=== PATIENT | female | born 1955 | race Caucasian/White ===

== ENCOUNTER 2020-02-13 15:37 | Inpatient (IN) | payer MEDICARE ==
[~2020-02-13] VITALS: Ht 177.8 cm; Wt 68.1 kg
[2020-02-13] MEDS ORDERED: IV NORMAL SALINE 1000ML BAG 1,000 ML IV ONE (15:45)
[2020-02-13] MEDS ORDERED: ASPIRIN 325 MG TABLET PO ONE (15:45)
--- NOTE | 2020-02-13 16:03 | EKG ---
[facility] [address] [place] [address] Test Date: 2020-02-13 Test Time: 15:48:43 Pat Name: MARC GOMEZ Department: Room: Gender: F Surgeon Partner: : 1955 Requested By: DELORIS DANG Order Number: [id number] Reading MD: Vishnu Roque MD Measurements Intervals [place] Rate: 66 P: 70 ID: 156 QRS: 49 QRSD: 88 T: 54 QT: 400 QTc: 421 Interpretive Statements SINUS RHYTHM ATRIAL PREMATURE COMPLEX(ES) ST & T ABNORMALITY, CONSIDER RECENT INFERIOR MYOCARDIAL OR PERICARDIAL DAMAGE ABNORMAL ECG Electronically Signed On 02-14-2020 9:17:32 CDT by Vishnu Roque MD
[2020-02-13 16:06] LABS: BASO % 1 % (0-3); EOS % 1 % (0-3); HEMATOCRIT 40.4 % (36.0-47.0); HEMOGLOBIN 14.1 g/dL (12.0-15.5); LYMPH # 1.9 x10^3/uL (1.0-4.8); LYMPH % 28 % (24-48); MEAN CORPUSCULAR HEMOGLOBIN 30 pg (25-35); MEAN CORPUSCULAR HGB CONC 35 g/dL (31-37); MEAN CORPUSCULAR VOLUME 86 fL (79-100); MONO # 0.5 x10^3/uL (0.0-1.1); MONO % 7 % (0-9); NEUT # 4.1 x10^3/uL (1.8-7.7); NEUT % 63 % (31-73); PLATELET COUNT 276 x10^3/uL (140-400); RED BLOOD COUNT 4.69 x10^6/uL (3.50-5.40); WHITE BLOOD COUNT 6.5 x10^3/uL (4.0-11.0)
[2020-02-13 16:07] LABS: CALCIUM 8.8 mg/dL (8.5-10.1); CREATININE 0.9 mg/dL (0.6-1.0); GFR 62.6; POTASSIUM 3.6 mmol/L (3.5-5.1)
[2020-02-13 16:13] LABS: ALBUMIN 3.8 g/dL (3.4-5.0); TOTAL BILIRUBIN 0.3 mg/dL (0.2-1.0); TOTAL PROTEIN 7.6 g/dL (6.4-8.2)
[2020-02-13 16:18] LABS: PROTHROMBIN TIME PATIENT 12.5 SEC (11.7-14.0)
--- NOTE | 2020-02-13 16:29 | PHYS DOC ---
Past Medical History Past Medical History: GERD, High Cholesterol, Hypertension Past Surgical History: Other Additional Past Surgical Histo: LUNG BIOPSY Smoking Status: Former Smoker Alcohol Use: None Drug Use: None General Adult EDM: Chief Complaint: CHEST PAIN HPI: HPI: Patient is a 64 year old female presents with history of midsternal chest pain with radiation down left arm. Patient reports started last night with interval improvement. Patient reports history of GERD for which she takes Protonix. Patient reports initially thought her symptoms were secondary to her chronic GERD. Patient reports returned today and felt different than her normal GERD. Reports she called her PCP who instructed her to present to the ER for further evaluation. Denies trauma. Denies shortness of air. Denies diaphoresis or nausea. Patient with cardiac risk factors of high blood pressure, former smoking, and high cholesterol. Patient denies leg swelling or calf tenderness. Denies history of PE/DVT. Patient does report family history of PE/DVT in her mother. Review of Systems: Review of Systems: Constitutional: Denies fever or chills Eyes: Denies redness or eye pain HENT: Denies nasal congestion or sore throat Respiratory: Denies cough or shortness of breath Cardiovascular: Reports chest pain; denies palpitations GI: Denies abdominal pain, nausea, or vomiting : Denies dysuria or hematuria Musculoskeletal: Denies back pain or joint pain Integument: Denies rash or skin lesions Neurologic: Denies headache, focal weakness or sensory changes Complete systems were reviewed and found to be within normal limits, except as documented in this note. Heart Score: HEART Score for Chest Pain: HEART Score for Chest Pain Response (Comments) Value History Moderately Suspicious 1 ECG Nonspecific Repolarizatio 1 Age > 65 2 Risk Factors >3 Risk Factors or Hx CAD 2 Troponin >3 x Normal Limit 2 Total 8 Risk Factors: Risk Factors: DM, Current or recent (<one month) smoker, HTN, HLP, family history of CAD, obesity. Risk Scores: Score 0 - 3: 2.5% MACE over next 6 weeks - Discharge Home Score 4 - 6: 20.3% MACE over next 6 weeks - Admit for Clinical Observation Score 7 - 10: 72.7% MACE over next 6 weeks - Early Invasive Strategies Current Medications: Current Medications Medications (Trade) Dose Ordered Sig/[facility] Start Time Stop Time Status Last Admin Dose Admin Aspirin (Karen Aspirin) 325 mg 1X ONCE 02/13/20 15:45 02/13/20 16:06 DC 02/13/20 16:09 325 MG Heparin Sodium (Porcine) (Heparin Sodium) 1,700 unit PRN Q6HRS PRN 02/13/20 16:30 Heparin Sodium/ Dextrose 250 ml @ 8.184 mls/ hr CONT PRN 02/13/20 16:30 Sodium Chloride 1,000 ml @ 1,000 mls/hr 1X ONCE 02/13/20 15:45 02/13/20 16:44 02/13/20 16:09 1,000 MLS/HR Allergies: Allergies: Allergies Coded Allergies Type Severity Reaction Last Updated Verified Sulfa (Sulfonamide Antibiotics) Allergy Intermediate Hives 02/13/20 Yes Physical Exam: PE: Constitutional: Well developed, well nourished, no acute distress, non-toxic appearance HENT: Normocephalic, atraumatic, oropharynx moist Eyes: Conjunctiva normal, no discharge Neck: Normal range of motion, no tenderness, supple Cardiovascular: Heart rate normal, regular rhythm Lungs & Thorax: Bilateral breath sounds clear to auscultation, no wheezing Abdomen: Soft, no tenderness, no guarding/rebound tenderness/distention Skin: Warm, dry, no erythema, no rash Extremities: No tenderness, ROM intact, no edema Neurologic: Alert and oriented X 3, no focal deficits noted Psychologic: Affect normal, judgment normal Current Patient Data: Labs: Laboratory Tests Test 02/13/20 15:50 White Blood Count 6.5 x10^3/uL (4.0-11.0) Red Blood Count 4.69 x10^6/uL (3.50-5.40) Hemoglobin 14.1 g/dL (12.0-15.5) Hematocrit 40.4 % (36.0-47.0) Mean Corpuscular Volume 86 fL (79-100) Mean Corpuscular Hemoglobin 30 pg (25-35) Mean Corpuscular Hemoglobin Concent 35 g/dL (31-37) Red Cell Distribution Width 13.0 % (11.5-14.5) Platelet Count 276 x10^3/uL (140-400) Neutrophils (%) (Auto) 63 % (31-73) Lymphocytes (%) (Auto) 28 % (24-48) Monocytes (%) (Auto) 7 % (0-9) Eosinophils (%) (Auto) 1 % (0-3) Basophils (%) (Auto) 1 % (0-3) Neutrophils # (Auto) 4.1 x10^3/uL (1.8-7.7) Lymphocytes # (Auto) 1.9 x10^3/uL (1.0-4.8) Monocytes # (Auto) 0.5 x10^3/uL (0.0-1.1) Eosinophils # (Auto) 0.0 x10^3/uL (0.0-0.7) Basophils # (Auto) 0.0 x10^3/uL (0.0-0.2) Sodium Level 139 mmol/L (136-145) Potassium Level 3.6 mmol/L (3.5-5.1) Chloride Level 102 mmol/L (98-107) Carbon Dioxide Level 27 mmol/L (21-32) Anion Gap 10 (6-14) Blood Urea Nitrogen 8 mg/dL (7-20) Creatinine 0.9 mg/dL (0.6-1.0) Estimated GFR (Cockcroft-Gault) 62.6 BUN/Creatinine Ratio 9 (6-20) Glucose Level 137 mg/dL (70-99) H Calcium Level 8.8 mg/dL (8.5-10.1) Magnesium Level 2.0 mg/dL (1.8-2.4) Total Bilirubin 0.3 mg/dL (0.2-1.0) Aspartate Amino Transferase (AST) 41 U/L (15-37) H Alanine Aminotransferase (ALT) 23 U/L (14-59) Alkaline Phosphatase 120 U/L (46-116) H Creatine Kinase 325 U/L (26-192) H Creatine Kinase MB (Mass) 18.7 ng/mL (0.0-3.6) H Creatine Kinase MB Relative Index 5.8 % (0-4) H Troponin I Quantitative 1.663 ng/mL (0.000-0.055) TR-Wgc-B-Type Natriuretic Peptide 1221 pg/mL (0-124) H Total Protein 7.6 g/dL (6.4-8.2) Albumin 3.8 g/dL (3.4-5.0) Albumin/Globulin Ratio 1.0 (1.0-1.7) Lipase 177 U/L (73-393) Laboratory Tests 02/13/20 15:50 Laboratory Tests 02/13/20 15:50 Vital Signs: Vital Signs Date Time Temp Pulse Resp B/P (MAP) Pulse Ox O2 Delivery O2 Flow Rate FiO2 02/13/20 15:44 98.6 67 19 164/104 (124) 100 Room Air 98.6 EKG: EKG: @1548 NSR at 66bpm with PACs, slight ST elevation noted in III and even less in aVF, no reciprocal depressions noted, QRS 88ms, QT/QTc 400/421ms Radiology/Procedures: Radiology/Procedures: PROCEDURE: CT ANGIOGRAPHY CHEST CTA scan of the Chest with Contrast (Pulmonary Embolism protocol) 02/13/2020 Clinical History: Chest pain. Elevated d-dimer. Technique: After the intravenous administration of 90 cc of Omnipaque 350, contiguous, 0.625 mm axial sections were obtained through the chest. 2 mm axial and 3D MIP coronal and sagittal reconstructed images were obtained. One or more of the following individualized dose reduction techniques were utilized for this study: 1. Automated exposure control. 2. Adjustment of the mA and/or kV according to patient size. 3. Use of iterative reconstruction technique. Findings: No filling defect is seen within the major branches of either pulmonary artery. There is no CT evidence of pulmonary embolism. The thoracic aorta is mildly tortuous. Atherosclerotic calcification of the thoracic aorta is seen. The thoracic aorta tapers normally. Linear bands of subsegmental atelectasis are seen involving both lower lobes. A 5 mm calcified granuloma is seen involving the left upper lobe. No area of consolidation, pleural effusion or pneumothorax is seen. Impression: There is no CT evidence of pulmonary embolism. Electronically signed by: Phuc Palacios MD (02/13/2020 5:44 PM) [id number] Course & Med Decision Making: Course & Med Decision Making Pertinent Labs and Imaging studies reviewed. (See chart for details) Patient presents with report of chest discomfort with radiation down left arm. Patient reports has started last night but had since improved. Reports return today and felt different. Patient was instructed to present to the ER by her PCP. EKG with very subtle ST elevation in 3 and even more minimally and AVf. No reciprocal changes noted. Labs obtained and posted to chart. Troponin > 1.6. D-dimer elevated. Heparin bolus/gtt initiated. CTA chest without acute process. HEART score [address] Leyva (cardiology) who is in agreement with plan and requests patient to be NPO at [place]. Patient requiring admission for further evaluation and treatment. Discussed with Dr. Henning (hospitalist) who is in agreement with admission. Discussed findings and plan with patient and family, who acknowledge understanding and agreement. Dragon Disclaimer: Dragon Disclaimer: This electronic medical record was generated, in whole or in part, using a voice recognition dictation system. Departure Departure Impression: Primary Impression: NSTEMI (non-ST elevated myocardial infarction) Additional Impression: Elevated d-dimer Disposition: ADMITTED INPATIENT Admitting Physician: EYAL (Juvencio) Condition: GUARDED Referrals: NAILA VITAL MD (PCP) Justicifation of Admission Dx: Justifications for Admission: Justification of Admission Dx: Yes AK: Acute NSTEMI Critical Care Time Critical care time was 30 minutes which includes time at bedside, spent in discussion of patient's care with specialists and/or family members, with interpretation of laboratory and/or radiological studies and is exclusive of procedures. DELORIS DANG DO Feb 13, 2020 16:28
[2020-02-13] MEDS ORDERED: HEPARIN for IV BOLUS 10,000 UNIT/10 ML VIAL. IV ONE (16:30)
[2020-02-13] MEDS ORDERED: HEPARIN 25,000UTS/250ML PREMIX 250 ML IV PRN (16:30)
[2020-02-13] MEDS ORDERED: HEPARIN for IV BOLUS 10,000 UNIT/10 ML VIAL. IV PRN (16:30)
[2020-02-13 16:39] LABS: D-DIMER 0.8 ug/mlFEU (0.00-0.50)
[2020-02-13] MEDS ORDERED: ONDANSETRON PF 4 MG/2 ML VIAL. IV PRN (16:45)
[2020-02-13] MEDS ORDERED: IOHEXOL 350 MG/ML 100 ML VIAL. IV ONE (17:15)
[2020-02-13] MEDS ORDERED: CONTRAST GIVEN. MC PRN (17:15)
[2020-02-13 17:23] LABS: BILIRUBIN,URINE NEGATIVE (NEG); CLARITY,URINE CLEAR; COLOR,URINE YELLOW; NITRITE,URINE NEGATIVE (NEG); PH,URINE 7.5 (<5.0-8.0); PROTEIN,URINE NEGATIVE (NEG-TRACE); UROBILINOGEN,URINE 0.2 mg/dL (0.2 mg/dL)
[2020-02-13 17:30] VITALS: BP 154/77
[2020-02-13 17:38] LABS: BACTERIA,URINE 0 /HPF (0-FEW); RBC,URINE OCC /HPF (0-2); SQUAMOUS EPITHELIAL CELL,UR FEW /LPF; WBC,URINE OCC /HPF (0-4)
[2020-02-13] MEDS ORDERED: AMLO10TA8 PO (17:44)
[2020-02-13] MEDS ORDERED: PANT40TA77 PO (17:44)
--- NOTE | 2020-02-13 17:47 | RAD ---
CTA scan of the Chest with Contrast (Pulmonary Embolism protocol) 02/13/2020 Clinical History: Chest pain. Elevated d-dimer. Technique: After the intravenous administration of 90 cc of Omnipaque 350, contiguous, 0.625 mm axial sections were obtained through the chest. 2 mm axial and 3D MIP coronal and sagittal reconstructed images were obtained. One or more of the following individualized dose reduction techniques were utilized for this study: 1. Automated exposure control. 2. Adjustment of the mA and/or kV according to patient size. 3. Use of iterative reconstruction technique. Findings: No filling defect is seen within the major branches of either pulmonary artery. There is no CT evidence of pulmonary embolism. The thoracic aorta is mildly tortuous. Atherosclerotic calcification of the thoracic aorta is seen. The thoracic aorta tapers normally. Linear bands of subsegmental atelectasis are seen involving both lower lobes. A 5 mm calcified granuloma is seen involving the left upper lobe. No area of consolidation, pleural effusion or pneumothorax is seen. Impression: There is no CT evidence of pulmonary embolism. Electronically signed by: Phuc Palacios MD (02/13/2020 5:44 PM) [id number]
--- NOTE | 2020-02-13 19:00 | NUR ---
Admit prior to shift change for Dx of NSTEMI. C/O mild chest pain. Describes it as aching. Rates it 11/07. Orientated to unit and call light. Reviewed plan of care to include Lab Draws such as Troponin, Heparin drip and, tele monitor and NPO after midnight. Verbalized understanding. Resting in bed watching TV. at bedside. Call light at hand.
[2020-02-13 19:18] VITALS: BP 157/74
[2020-02-13] MEDS: fentaNYL PF VIAL 100 MCG/2 ML VIAL IV PRN (19:43)
[2020-02-13 22:47] VITALS: BP 131/71
--- NOTE | 2020-02-13 23:16 | NUR ---
Troponin elevated from 1.663 to 3[address] Reported to [address] Leyva. Continue with Heparin drip and NPO after midnight. Resting in bed. Call light at hand.
[2020-02-14] VITALS (13 sets, daily range): BP systolic 114–149; BP diastolic 54–79
[2020-02-14] MEDS: fentaNYL PF VIAL 100 MCG/2 ML VIAL IV PRN (02:28)
[2020-02-14 05:39] LABS: CHOLESTEROL/HDL RATIO 2.2
[2020-02-14] MEDS ORDERED: IV NORMAL SALINE 1000ML BAG 1,000 ML IV ONE (08:30)
[2020-02-14] MEDS: METOPROLOL TART IMMED RELEASE 25 MG TABLET. PO SCH ×2 (08:34→22:55)
[2020-02-14] MEDS: ASPIRIN ENTERIC COATED 325 MG TABLET.DR. PO SCH (08:42)
--- NOTE | 2020-02-14 09:31 | PDOC2 ---
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 No associated symptoms of n/v, diaphoresis, palpitations, SOA. No dizziness but her discomfort was c ontinuous with mild to moderate discomfort and nonradiating. Reports No recent falls or injury. No hx of VTE or arrhythmias. She takes norvasc for HTN and no statins but takes daily baby ASA. No hx of DM2. Reports that 5 yrs ago she had a good calcium CT scoring at [facility] and possibly a yr or 2 after that she had stress test and noted abnormality and LHC was done possibly at [facility] but no intervention and denies any significnat lesions at that time but could not recall very well. Currently she still has some tinge of discomfort and again no other associated symptoms. No notable fatigue weakness or any prior discomfort compared to yesterday and she does not do any routine exercise. 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 PAST MEDICAL HISTORY Cardiovascular: HTN, Hyperlipidemia Pulmonary: No pertinent hx CENTRAL NERVOUS SYSTEM: Other (No pertinent history) GI: GERD Heme/Onc: No pertinent hx Hepatobiliary: No pertinent hx Psych: No pertinent hx Musculoskeletal: Osteoarthritis Rheumatologic: No pertinent hx Infectious disease: No pertinent hx ENT: No pertinent hx Renal/: No pertinent hx Endocrine: No pertinent hx Dermatology: No pertinent hx PAST SURGICAL HISTORY Past Surgical History: Other (lung biopsy; C) FAMILY HISTORY Family History: Heart Disease (father) SOCIAL HISTORY Smoke: Quit (20 pk yr quit>20 yrs ago) ALCOHOL: none Drugs: None Lives: with Family CURRENT MEDICATIONS CURRENT MEDICATIONS Current Medications Medications (Trade) Dose Ordered Sig/Connie Route PRN Reason Start Time Stop Time Status Last Admin Dose Admin Aspirin (Karen Aspirin) 325 mg 1X ONCE PO 02/13/20 15:45 02/13/20 16:06 DC 02/13/20 16:09 Sodium Chloride 1,000 ml @ 1,000 mls/hr 1X ONCE IV 02/13/20 15:45 02/13/20 16:44 DC 02/13/20 16:09 Heparin Sodium (Porcine) (Heparin Sodium) 4,000 unit 1X ONCE IV 02/13/20 16:30 02/13/20 16:31 DC 02/13/20 16:40 Heparin Sodium/ Dextrose 250 ml @ 8.184 mls/ hr CONT PRN IV PER PROTOCOL 02/13/20 16:30 02/13/20 16:39 Fentanyl Citrate (Fentanyl 2ml Vial) 25 mcg PRN Q2HRS PRN IV PAIN 02/13/20 16:45 02/14/20 02:28 Iohexol (Omnipaque 350 Mg/ml) 90 ml 1X ONCE IV 02/13/20 17:15 02/13/20 17:16 DC 02/13/20 17:24 Aspirin (Ecotrin) 325 mg [id number] PO 02/14/20 08:00 02/14/20 08:42 Metoprolol Tartrate (Lopressor) 12.5 mg BID PO 02/14/20 09:00 02/14/20 08:34 Sodium Chloride 1,000 ml @ 75 mls/hr 1X ONCE IV 02/14/20 08:30 02/14/20 21:49 02/14/20 08:41 ALLERGIES ALLERGIES: Coded Allergies: Sulfa (Sulfonamide Antibiotics) (Verified Allergy, Intermediate, Hives, 02/13/20) ROS Review of System 4 point ROS evluated with pertinent positives noted per HPI PHYSICAL EXAM General: Alert, Oriented X3, Cooperative, No acute distress HEENT: Atraumatic, Mucous membr. moist/pink Lungs: Clear to auscultation, Normal air movement Heart: Regular rate (SR), Normal S1, Normal S2, No murmurs Abdomen: Soft, No tenderness Extremities: No cyanosis, No edema Skin: No breakdown, No significant lesion Neuro: Normal speech, Sensation intact Psych/Mental Status: Mental status NL, Mood NL MUSCULOSKELETAL: Osteoarthritic changes both hands VITALS/I&O VITALS/I&O: Vital Signs Date Time Temp Pulse Resp B/P (MAP) Pulse Ox O2 Delivery O2 Flow Rate FiO2 02/14/20 08:34 55 139/72 02/14/20 07:00 98.0 18 97 Room Air 98.0 I & O 02/13/20 02/13/20 02/14/20 15:00 23:00 07:00 Intake Total 1007 ml 0 ml Balance 1007 ml 0 ml LABS Lab: Laboratory Tests Test 02/13/20 15:50 02/13/20 17:10 02/13/20 19:42 02/13/20 22:40 White Blood Count 6.5 x10^3/uL (4.0-11.0) Red Blood Count 4.69 x10^6/uL (3.50-5.40) Hemoglobin 14.1 g/dL (12.0-15.5) Hematocrit 40.4 % (36.0-47.0) Mean Corpuscular Volume 86 fL (79-100) Mean Corpuscular Hemoglobin 30 pg (25-35) Mean Corpuscular Hemoglobin Concent 35 g/dL (31-37) Red Cell Distribution Width 13.0 % (11.5-14.5) Platelet Count 276 x10^3/uL (140-400) Neutrophils (%) (Auto) 63 % (31-73) Lymphocytes (%) (Auto) 28 % (24-48) Monocytes (%) (Auto) 7 % (0-9) Eosinophils (%) (Auto) 1 % (0-3) Basophils (%) (Auto) 1 % (0-3) Neutrophils # (Auto) 4.1 x10^3/uL (1.8-7.7) Lymphocytes # (Auto) 1.9 x10^3/uL (1.0-4.8) Monocytes # (Auto) 0.5 x10^3/uL (0.0-1.1) Eosinophils # (Auto) 0.0 x10^3/uL (0.0-0.7) Basophils # (Auto) 0.0 x10^3/uL (0.0-0.2) Prothrombin Time 12.5 SEC (11.7-14.0) Prothrombin Time INR 1.0 (0.8-1.1) Activated Partial Thromboplast Time 29 SEC (24-38) D-Dimer (Bouchra) 0.80 ug/mlFEU (0.00-0.50) H Sodium Level 139 mmol/L (136-145) Potassium Level 3.6 mmol/L (3.5-5.1) Chloride Level 102 mmol/L (98-107) Carbon Dioxide Level 27 mmol/L (21-32) Anion Gap 10 (6-14) Blood Urea Nitrogen 8 mg/dL (7-20) Creatinine 0.9 mg/dL (0.6-1.0) Estimated GFR (Cockcroft-Gault) 62.6 BUN/Creatinine Ratio 9 (6-20) Glucose Level 137 mg/dL (70-99) H Calcium Level 8.8 mg/dL (8.5-10.1) Magnesium Level 2.0 mg/dL (1.8-2.4) Total Bilirubin 0.3 mg/dL (0.2-1.0) Aspartate Amino Transferase (AST) 41 U/L (15-37) H Alanine Aminotransferase (ALT) 23 U/L (14-59) Alkaline Phosphatase 120 U/L (46-116) H Creatine Kinase 325 U/L (26-192) H Creatine Kinase MB (Mass) 18.7 ng/mL (0.0-3.6) H Creatine Kinase MB Relative Index 5.8 % (0-4) H Troponin I Quantitative 1.663 ng/mL (0.000-0.055) 2.604 ng/mL (0.000-0.055) 3.640 ng/mL (0.000-0.055) NT-Zkf-Q-Type Natriuretic Peptide 1221 pg/mL (0-124) H Total Protein 7.6 g/dL (6.4-8.2) Albumin 3.8 g/dL (3.4-5.0) Albumin/Globulin Ratio 1.0 (1.0-1.7) Lipase 177 U/L (73-393) Urine Collection Type Unknown Urine Color Yellow Urine Clarity Clear Urine pH 7.5 (<5.0-8.0) Urine Specific [place] <=1.005 (1.000-1.030) Urine Protein Negative mg/dL (NEG-TRACE) Urine Glucose (UA) Negative mg/dL (NEG) Urine Ketones (Stick) Negative mg/dL (NEG) Urine Blood Negative (NEG) Urine Nitrite Negative (NEG) Urine Bilirubin Negative (NEG) Urine Urobilinogen Dipstick 0.2 mg/dL (0.2 mg/dL) Urine Leukocyte Esterase Negative (NEG) Urine RBC Occ /HPF (0-2) Urine WBC Occ /HPF (0-4) Urine Squamous Epithelial Cells Few /LPF Urine Bacteria 0 /HPF (0-FEW) Heparin Anti-Xa Act, Unfractionated 0.55 IU/mL (0.30-0.70) Test 02/14/20 04:40 02/14/20 04:46 Troponin I Quantitative 6.436 ng/mL (0.000-0.055) Heparin Anti-Xa Act, Unfractionated 0.42 IU/mL (0.30-0.70) Triglycerides Level 34 mg/dL (0-150) Cholesterol Level 254 mg/dL (0-200) H LDL Cholesterol, Calculated 133 mg/dL (0-100) H VLDL Cholesterol, Calculated 7 mg/dL (0-40) Non-HDL Cholesterol Calculated 140 mg/dL (0-129) H HDL Cholesterol 114 mg/dL (40-60) H Cholesterol/HDL Ratio 2.2 Thyroid Stimulating Hormone (TSH) 2.389 uIU/mL (0.358-3.74) Laboratory Tests 02/13/20 15:50 Laboratory Tests 02/13/20 15:50 ASSESSMENT/PLAN ASSESSMENT/PLAN 1. ACS 2. HLP 3. Asymptomatic SB: 50s, no pauses with associated use of metoprolol. with int ermittent brief PSVT 4. HTN: controlled Recommendations 1. LHC today, risks and benefits discussed and agreeable to proceed 2. ASA, heparin drip, start on IVF and statin 3. May need to hold BB pending HR trend. 4. TSH and obtain TTE. Repeat EKG PAVAN KELLY MD 02/14/20 1136: CARDIAC CONSULT ASSESSMENT/PLAN ASSESSMENT/PLAN Patient seen and examined. Agree with MEDICAL ADMINISTRATIVE's assessment and plan. Plan for cardiac catheterization and possible PCI to further evaluate her non- STEMI. Bradycardia could be secondary to RCA involvement. Continue to monitor telemetry. Continue heparin infusion for goal. Thank you for your consultation. TOBIN RANGEL APRN Feb 14, 2020 09:31 PAVAN KELLY MD Feb 14, 2020 11:36
--- NOTE | 2020-02-14 09:33 | EKG ---
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
[2020-02-14] MEDS ORDERED: IODIXANOL 320 MG/ML 100 ML VIAL. ONE (09:52)
[2020-02-14] MEDS ORDERED: LIDOCAINE 1% PF 2 ML VIAL. ONE (09:52)
[2020-02-14] MEDS ORDERED: fentaNYL PF VIAL 100 MCG/2 ML VIAL ONE (09:52)
[2020-02-14] MEDS ORDERED: HEPARIN for IV BOLUS 10,000 UNIT/10 ML VIAL. ONE (09:53)
[2020-02-14] MEDS ORDERED: VERAPAMIL 5 MG/2 ML VIAL. ONE (09:53)
[2020-02-14] MEDS ORDERED: MIDAZOLAM HCL/PF 2 MG/2 ML VIAL. ONE (09:53)
[2020-02-14] MEDS ORDERED: NITROGLYCERIN 200 MCG/2 ML SYRINGE FOR CATH/VASC LAB. ONE (09:55)
--- NOTE | 2020-02-14 10:27 | PDOC1 ---
History and Physical Date of Admission Date of Admission 02/14/2020 Identification/Chief Complaint Chief Complaint My chest hurts Source Source: Chart review, Patient History of Present Illness History of Present Illness 64-year-old female with past medical history of hypertension dyslipidemia who was in her usual state of health until yesterday evening when she presented epigastric pain that radiated retrosternally. The patient denied sensation of impending doom no diaphoresis she did have radiation to her arm over the left side. Patient denies association with exertion. The patient describes the pain as a achy feeling normal pressure no burning sensation 5 out of 10 intensity, of noticed that she has had GERD in the past and it felt quite different reason why she decided to come to the emergency department. The patient denies any shortness of breath no paroxysmal nocturnal dyspnea no orthopnea was reported the patient denies any recent workout programs no trauma to the affected area either. Due to her comorbidities we were asked to admit the patient for cardiac evaluation. She relates having had a cardiac cath several years ago and was told that she had no blockages. Records are not available for review. At the time of my evaluation patient is laying in bed in no acute distress she denies chest pain palpitations no nausea vomiting no urinary symptoms no lower extremity edema was reported either. Plan of care has been explained detail and all of her concerns were addressed to the best of my abilities Past Medical History Cardiovascular: HTN, Hyperlipidemia Pulmonary: No pertinent hx CENTRAL NERVOUS SYSTEM: Other (No pertinent history) GI: GERD Heme/Onc: No pertinent hx Hepatobiliary: No pertinent hx Psych: No pertinent hx Rheumatologic: No pertinent hx Infectious disease: No pertinent hx ENT: No pertinent hx Renal/: No pertinent hx Endocrine: No pertinent hx Dermatology: No pertinent hx Past Surgical History Past Surgical History: Other (lung biopsy; [facility]) Family History Family History: Heart Disease (father) Social History Smoke: Quit (20 pk yr quit>20 yrs ago) ALCOHOL: none Drugs: None Current Problem List Problem List Problems Medical Problems: (1) Elevated d-dimer Status: Acute (2) NSTEMI (non-ST elevated myocardial infarction) Status: Acute Current Medications Current Medications Current Medications Medications (Trade) Dose Ordered Sig/Connie Start Time Stop Time Status Last Admin Dose Admin Aspirin (Akren Aspirin) 325 mg 1X ONCE 02/13/20 15:45 02/13/20 16:06 DC 02/13/20 16:09 325 MG Aspirin (Ecotrin) 325 mg [id number] 02/14/20 08:00 02/14/20 08:42 325 MG Atorvastatin Calcium (Lipitor) 40 mg QHS 02/14/20 21:00 Fentanyl Citrate (Fentanyl 2ml Vial) 100 mcg STK-MED ONCE 02/14/20 09:52 02/14/20 09:53 DC Heparin Sodium (Porcine) (Heparin Sodium) 10,000 unit STK-MED ONCE 02/14/20 09:53 02/14/20 09:53 DC Heparin Sodium/ Dextrose 250 ml @ 8.184 mls/ hr CONT PRN 02/13/20 16:30 02/13/20 16:39 8.184 MLS/HR Heparin Sodium/ Sodium Chloride 500 ml @ As Directed STK-MED ONCE 02/14/20 09:52 02/14/20 09:52 DC Info (CONTRAST GIVEN -- Rx MONITORING) 1 each PRN DAILY PRN 02/13/20 17:15 02/15/20 17:14 Iodixanol (Visipaque 320) 100 ml STK-MED ONCE 02/14/20 09:52 02/14/20 09:52 DC Iohexol (Omnipaque 350 Mg/ml) 90 ml 1X ONCE 02/13/20 17:15 02/13/20 17:16 DC 02/13/20 17:24 90 ML Lidocaine HCl (Xylocaine-Mpf 1% 2ml Vial) 2 ml STK-MED ONCE 02/14/20 09:52 02/14/20 09:52 DC Metoprolol Tartrate (Lopressor) 12.5 mg BID 02/14/20 09:00 02/14/20 08:34 12.5 MG Midazolam HCl (Versed) 2 mg STK-MED ONCE 02/14/20 09:53 02/14/20 09:53 DC Nitroglycerin (Nitroglycerin) 200 mcg STK-MED ONCE 02/14/20 09:55 02/14/20 09:55 DC Ondansetron HCl (Zofran) 4 mg PRN Q8HRS PRN 02/13/20 16:45 02/14/20 16:44 Sodium Chloride 1,000 ml @ 75 mls/hr 1X ONCE 02/14/20 08:30 02/14/20 21:49 02/14/20 08:41 75 MLS/HR Verapamil HCl (Verapamil) 5 mg STK-MED ONCE 02/14/20 09:53 02/14/20 09:53 DC Allergies Allergies Allergies Coded Allergies Type Severity Reaction Last Updated Verified Sulfa (Sulfonamide Antibiotics) Allergy Intermediate Hives 02/13/20 Yes ROS Review of System CONSTITUTIONAL: No fever or chills EYES: No recent changes SKIN: No rash or itching CARDIOVASCULAR: No chest pain, syncope, palpitations, or edema RESPIRATORY: No SOB or cough GASTROINTESTINAL: No nausea, vomiting or abdominal pain NEUROLOGICAL: No headaches or weakness ENDOCRINE: No cold or heat intolerance GENITOURINARY: No urgency or frequency of urination MUSCULOSKELETAL: No back pain or joint pain LYMPHATICS: No enlarged lymph nodes PSYCHIATRIC: No anxiety or depression Physical Exam Physical Exam GEN.: No apparent distress. Alert and oriented. HEENT: Head is normocephalic, atraumatic NECK: Supple. LUNGS: Clear to auscultation. HEART: RRR, S1, S2 present. Peripheral pulses intact ABDOMEN: Soft, nontender. Positive bowel sounds. EXTREMITIES: Without any cyanosis. NEUROLOGIC: Normal speech, normal tone PSYCHIATRIC: Normal affect, normal mood. SKIN: No ulcerations Vitals Vitals Vital Signs Date Time Temp Pulse Resp B/P (MAP) Pulse Ox O2 Delivery O2 Flow Rate FiO2 02/14/20 08:34 55 139/72 02/14/20 08:00 Room Air 02/14/20 07:00 98.0 18 97 98.0 Labs Labs Laboratory Tests Test 02/13/20 15:50 02/13/20 17:10 02/13/20 19:42 02/13/20 22:40 White Blood Count 6.5 x10^3/uL (4.0-11.0) Red Blood Count 4.69 x10^6/uL (3.50-5.40) Hemoglobin 14.1 g/dL (12.0-15.5) Hematocrit 40.4 % (36.0-47.0) Mean Corpuscular Volume 86 fL (79-100) Mean Corpuscular Hemoglobin 30 pg (25-35) Mean Corpuscular Hemoglobin Concent 35 g/dL (31-37) Red Cell Distribution Width 13.0 % (11.5-14.5) Platelet Count 276 x10^3/uL (140-400) Neutrophils (%) (Auto) 63 % (31-73) Lymphocytes (%) (Auto) 28 % (24-48) Monocytes (%) (Auto) 7 % (0-9) Eosinophils (%) (Auto) 1 % (0-3) Basophils (%) (Auto) 1 % (0-3) Neutrophils # (Auto) 4.1 x10^3/uL (1.8-7.7) Lymphocytes # (Auto) 1.9 x10^3/uL (1.0-4.8) Monocytes # (Auto) 0.5 x10^3/uL (0.0-1.1) Eosinophils # (Auto) 0.0 x10^3/uL (0.0-0.7) Basophils # (Auto) 0.0 x10^3/uL (0.0-0.2) Prothrombin Time 12.5 SEC (11.7-14.0) Prothromb Time International Ratio 1.0 (0.8-1.1) Activated Partial Thromboplast Time 29 SEC (24-38) D-Dimer (Bouchra) 0.80 ug/mlFEU (0.00-0.50) Sodium Level 139 mmol/L (136-145) Potassium Level 3.6 mmol/L (3.5-5.1) Chloride Level 102 mmol/L (98-107) Carbon Dioxide Level 27 mmol/L (21-32) Anion Gap 10 (6-14) Blood Urea Nitrogen 8 mg/dL (7-20) Creatinine 0.9 mg/dL (0.6-1.0) Estimated GFR (Cockcroft-Gault) 62.6 BUN/Creatinine Ratio 9 (6-20) Glucose Level 137 mg/dL (70-99) Calcium Level 8.8 mg/dL (8.5-10.1) Magnesium Level 2.0 mg/dL (1.8-2.4) Total Bilirubin 0.3 mg/dL (0.2-1.0) Aspartate Amino Transf (AST/SGOT) 41 U/L (15-37) Alanine Aminotransferase (ALT/SGPT) 23 U/L (14-59) Alkaline Phosphatase 120 U/L (46-116) Creatine Kinase 325 U/L (26-192) Creatine Kinase MB (Mass) 18.7 ng/mL (0.0-3.6) Creatine Kinase MB Relative Index 5.8 % (0-4) Troponin I Quantitative 1.663 ng/mL (0.000-0.055) 2.604 ng/mL (0.000-0.055) 3.640 ng/mL (0.000-0.055) XT-Bdp-X-Type Natriuretic Peptide 1221 pg/mL (0-124) Total Protein 7.6 g/dL (6.4-8.2) Albumin 3.8 g/dL (3.4-5.0) Albumin/Globulin Ratio 1.0 (1.0-1.7) Lipase 177 U/L (73-393) Urine Collection Type Unknown Urine Color Yellow Urine Clarity Clear Urine pH 7.5 (<5.0-8.0) Urine Specific [place] <=1.005 (1.000-1.030) Urine Protein Negative mg/dL (NEG-TRACE) Urine Glucose (UA) Negative mg/dL (NEG) Urine Ketones (Stick) Negative mg/dL (NEG) Urine Blood Negative (NEG) Urine Nitrite Negative (NEG) Urine Bilirubin Negative (NEG) Urine Urobilinogen Dipstick 0.2 mg/dL (0.2 mg/dL) Urine Leukocyte Esterase Negative (NEG) Urine RBC Occ /HPF (0-2) Urine WBC Occ /HPF (0-4) Urine Squamous Epithelial Cells Few /LPF Urine Bacteria 0 /HPF (0-FEW) Heparin Anti-Xa Act, Unfractionated 0.55 IU/mL (0.30-0.70) Test 02/14/20 04:40 02/14/20 04:46 Troponin I Quantitative 6.436 ng/mL (0.000-0.055) Heparin Anti-Xa Act, Unfractionated 0.42 IU/mL (0.30-0.70) Triglycerides Level 34 mg/dL (0-150) Cholesterol Level 254 mg/dL (0-200) LDL Cholesterol, Calculated 133 mg/dL (0-100) VLDL Cholesterol, Calculated 7 mg/dL (0-40) Non-HDL Cholesterol Calculated 140 mg/dL (0-129) HDL Cholesterol 114 mg/dL (40-60) Cholesterol/HDL Ratio 2.2 Thyroid Stimulating Hormone (TSH) 2.389 uIU/mL (0.358-3.74) Laboratory Tests Test 02/13/20 15:50 02/13/20 17:10 02/13/20 19:42 02/13/20 22:40 White Blood Count 6.5 x10^3/uL (4.0-11.0) Red Blood Count 4.69 x10^6/uL (3.50-5.40) Hemoglobin 14.1 g/dL (12.0-15.5) Hematocrit 40.4 % (36.0-47.0) Mean Corpuscular Volume 86 fL (79-100) Mean Corpuscular Hemoglobin 30 pg (25-35) Mean Corpuscular Hemoglobin Concent 35 g/dL (31-37) Red Cell Distribution Width 13.0 % (11.5-14.5) Platelet Count 276 x10^3/uL (140-400) Neutrophils (%) (Auto) 63 % (31-73) Lymphocytes (%) (Auto) 28 % (24-48) Monocytes (%) (Auto) 7 % (0-9) Eosinophils (%) (Auto) 1 % (0-3) Basophils (%) (Auto) 1 % (0-3) Neutrophils # (Auto) 4.1 x10^3/uL (1.8-7.7) Lymphocytes # (Auto) 1.9 x10^3/uL (1.0-4.8) Monocytes # (Auto) 0.5 x10^3/uL (0.0-1.1) Eosinophils # (Auto) 0.0 x10^3/uL (0.0-0.7) Basophils # (Auto) 0.0 x10^3/uL (0.0-0.2) Prothrombin Time 12.5 SEC (11.7-14.0) Prothromb Time International Ratio 1.0 (0.8-1.1) Activated Partial Thromboplast Time 29 SEC (24-38) D-Dimer (Bouchra) 0.80 ug/mlFEU (0.00-0.50) Sodium Level 139 mmol/L (136-145) Potassium Level 3.6 mmol/L (3.5-5.1) Chloride Level 102 mmol/L (98-107) Carbon Dioxide Level 27 mmol/L (21-32) Anion Gap 10 (6-14) Blood Urea Nitrogen 8 mg/dL (7-20) Creatinine 0.9 mg/dL (0.6-1.0) Estimated GFR (Cockcroft-Gault) 62.6 BUN/Creatinine Ratio 9 (6-20) Glucose Level 137 mg/dL (70-99) Calcium Level 8.8 mg/dL (8.5-10.1) Magnesium Level 2.0 mg/dL (1.8-2.4) Total Bilirubin 0.3 mg/dL (0.2-1.0) Aspartate Amino Transf (AST/SGOT) 41 U/L (15-37) Alanine Aminotransferase (ALT/SGPT) 23 U/L (14-59) Alkaline Phosphatase 120 U/L (46-116) Creatine Kinase 325 U/L (26-192) Creatine Kinase MB (Mass) 18.7 ng/mL (0.0-3.6) Creatine Kinase MB Relative Index 5.8 % (0-4) Troponin I Quantitative 1.663 ng/mL (0.000-0.055) 2.604 ng/mL (0.000-0.055) 3.640 ng/mL (0.000-0.055) UU-Vbp-S-Type Natriuretic Peptide 1221 pg/mL (0-124) Total Protein 7.6 g/dL (6.4-8.2) Albumin 3.8 g/dL (3.4-5.0) Albumin/Globulin Ratio 1.0 (1.0-1.7) Lipase 177 U/L (73-393) Urine Collection Type Unknown Urine Color Yellow Urine Clarity Clear Urine pH 7.5 (<5.0-8.0) Urine Specific [place] <=1.005 (1.000-1.030) Urine Protein Negative mg/dL (NEG-TRACE) Urine Glucose (UA) Negative mg/dL (NEG) Urine Ketones (Stick) Negative mg/dL (NEG) Urine Blood Negative (NEG) Urine Nitrite Negative (NEG) Urine Bilirubin Negative (NEG) Urine Urobilinogen Dipstick 0.2 mg/dL (0.2 mg/dL) Urine Leukocyte Esterase Negative (NEG) Urine RBC Occ /HPF (0-2) Urine WBC Occ /HPF (0-4) Urine Squamous Epithelial Cells Few /LPF Urine Bacteria 0 /HPF (0-FEW) Heparin Anti-Xa Act, Unfractionated 0.55 IU/mL (0.30-0.70) Test 02/14/20 04:40 02/14/20 04:46 Troponin I Quantitative 6.436 ng/mL (0.000-0.055) Heparin Anti-Xa Act, Unfractionated 0.42 IU/mL (0.30-0.70) Triglycerides Level 34 mg/dL (0-150) Cholesterol Level 254 mg/dL (0-200) LDL Cholesterol, Calculated 133 mg/dL (0-100) VLDL Cholesterol, Calculated 7 mg/dL (0-40) Non-HDL Cholesterol Calculated 140 mg/dL (0-129) HDL Cholesterol 114 mg/dL (40-60) Cholesterol/HDL Ratio 2.2 Thyroid Stimulating Hormone (TSH) 2.389 uIU/mL (0.358-3.74) VTE Prophylaxis Ordered VTE Prophylaxis Devices: Yes VTE Pharmacological Prophylaxi: No Assessment/Plan Assessment/Plan Chest pain rule out ACS History of dyslipidemia Essential hypertension Hyperglycemia Plan Check hemoglobin A1c Follow recommendations from sales support consultant as follows: Recommendations 1. LHC today, risks and benefits discussed and agreeable to proceed 2. ASA, heparin drip, start on IVF and statin 3. May need to hold BB pending HR trend. 4. TSH and obtain TTE. Repeat EKG Justicifation of Admission Dx: Justifications for Admission: Justification of Admission Dx: Yes CHF: Cardiac Arrhythmias DAVON FUENTES MD Feb 14, 2020 10:27
[2020-02-14] MEDS ORDERED: BIVALIRUDIN 250 MG VIAL. IV ONE ×2 (10:34→10:45)
[2020-02-14] MEDS ORDERED: HEPARIN for IV BOLUS 10,000 UNIT/10 ML VIAL. IART ONE (10:45)
[2020-02-14] MEDS ORDERED: LIDOCAINE 1% PF 2 ML VIAL. INJ ONE (10:45)
[2020-02-14] MEDS ORDERED: fentaNYL PF VIAL 100 MCG/2 ML VIAL IV ONE (10:45)
[2020-02-14] MEDS ORDERED: NITROGLYCERIN 200 MCG/2 ML SYRINGE FOR CATH/VASC LAB. IART ONE (10:45)
[2020-02-14] MEDS ORDERED: MIDAZOLAM HCL/PF 2 MG/2 ML VIAL. IV ONE (10:45)
[2020-02-14] MEDS ORDERED: VERAPAMIL 5 MG/2 ML VIAL. IART ONE (10:45)
[2020-02-14] MEDS ORDERED: IODIXANOL 320 MG/ML 100 ML VIAL. IART ONE (10:45)
--- NOTE | 2020-02-14 10:50 | NUR ---
SW following. Discussed with RN, pt from home, room air. Having a cath procedure today. RN anticipate discharge home tomorrow (02/15/2020). SW will continue to follow.
[2020-02-14] MEDS ORDERED: PRASUGREL 10 MG TABLET. ONE (10:57)
[2020-02-14] MEDS ORDERED: NITROGLYCERIN 200 MCG/2 ML SYRINGE FOR CATH/VASC LAB. ICAR ONE (11:00)
[2020-02-14] MEDS ORDERED: PRASUGREL 10 MG TABLET. PO ONE (11:00)
[2020-02-14] MEDS: IV 1/2 NORMAL SALINE 1,000 ML IV SCH (11:37)
--- NOTE | 2020-02-14 11:37 | PDOC ---
MODERATE SEDATION ASSESSMENT RISKS/ALTERNATIVES Risks/Alternatives Risks and alternatives of this type of sedation and procedure discussed with: RISK/ALTERNATIVES: Patient H & P ON CHART H & P H & P on chart and reviewed for co-morbid conditions and appropriate labs. H&P ON CHART: Yes STATUS PREG STATUS ASSESSED: N/A MEDS/ALLERGIES REVIEWED Meds/Allergies Reviewed Medications and Allergies including time and route of recently administered narcotics and sedatives. MEDS/ALLERGIES REVIEWED: Yes ASA RATING ASA RATING: II AIRWAY ASSESSMENT Airway Assessment Airway patency, oral function limitations, presence of caps, crowns, dentures, partials, and ability to extend neck assessed. AIRWAY ASSESSMENT: Yes MALLAMPATI SCORE MALLAMPATI SCORE: II PRE-SEDATION ASSESSMENT PRE-SEDATION ASSESSMENT: Yes PAVAN KELLY MD Feb 14, 2020 11:37
[2020-02-14] MEDS ORDERED: NITROGLYCERIN SUBLINGUAL 0.4 MG BOTTLE OF 25. SL PRN (11:45)
[2020-02-14] MEDS ORDERED: 0.9 % SODIUM CHLORIDE 10 ML DISP.SYRIN. IV PRN (11:45)
[2020-02-14] MEDS ORDERED: ACETAMINOPHEN 325 MG TABLET. PO PRN (11:45)
--- NOTE | 2020-02-14 11:48 | CARD ---
MR#: [id number] Date of Study: 02/14/2020 Ordering Physician: PAVAN KELLY, Referring Physician: PAVAN KELLY, Tech: ISAÍAS MCBRIDE RTR APPROVED REPORT Technologist: ISAÍAS MCBRIDE RTR Nurse: Roshni Marcelino R.N. Procedure(s) performed: 1. Left heart catheterization, selective coronary angiography and left ventr iculography via right transradial approach 2. Successful PCI/drug-eluting stents placement to the right coronary artery. MODERATE SEDATION TIME: 52 MINUTES FLUORO TIME: 17.0 MIN DOSE: 57.6 GYCM2 CONTRAST: 154CC VISI INDICATION The indication(s) include : non-STEMI . CSHA Clinical Frailty Scale CSHA Clinical Frailty Scale: Managing Well Heart Failure Heart Failure: No PROCEDURE NARRATIVE After explaining the risks, benefits and alternative options, informed consent was obtained from esperanza ent. Patient was brought to the cardiac Air Boatswain and right wrist was prepped and draped in the usual fashion after confirming a positive modified Rubio's test. Arterial access was obtained in the righ t radial artery and a 6 Slovak sheath was inserted. 6 Slovak Loi catheter and 6 Slovak JR4 guide were used to perform selective angiography of the left and right coronary arteries. 6 Slov[place] pigtail catheter was used to perform left ventriculography. The following findings were noted. FINDINGS 1. Hemodynamics: Left ventricular end-diastolic pressure of 19 mmHg. No pullback gradient across th e aortic valve. 2. Left ventriculography: Posterobasal wall hypokinesis with ejection fraction estimated at 55 to 60 %. No significant mitral regurgitation seen. 3. Coronary angiography: a. The left main coronary artery arose from the left sinus of Valsalva, gave rise to the left anteri or descending and left circumflex arteries and did not show any significant stenosis. b. The left anterior descending artery did not show any significant stenosis. c. The left circumflex artery did not show any significant stenosis. d. The right coronary artery was a dominant vessel arising from the right sinus of Valsalva that marquez wed 100% occlusion in the midsegment. INTERVENTION The right coronary artery was engaged with 6 Slovak JR4 guide catheter and the complete occlusion in the midsegment was crossed with a 0.014 inch Mesitis pro-water guidewire. This was predilated with a 2 .5 x 12 mm Euphora balloon following which this was successfully treated with 3.5 x 22 and 3.5 x 15 m m overlapping resolute [place] drug-eluting stents. Follow-up angiography showed resolution of the sten osis to 0% with JAIME-3 distal flow. Patient tolerated the procedure well. Hemostasis was achieved u sing TR band. There were no immediate complications. JAIME Flow JAIME Flow (Pre-Intervention): JAIME-0 JAIME Flow (Post-Intervention): JAIME-3 Conclusion 1. Severe single-vessel coronary disease with 100% occlusion of the right coronary artery. 2. Posterobasal wall hypokinesis with ejection fraction estimated at 55 to 60%. 3. Successful PCI/drug-eluting stents placement to the right coronary artery. Recommendations 1. Aspirin 325 mg daily for 1 month followed by 81 mg daily 2. Prasugrel 10 mg daily for preferably 1 year 3. Cardiovascular risk factor modification 4. Cardiac rehabilitation referral Signed by : Pavan Kelly, Electronically Approved : 02/14/2020 11:47:50
--- NOTE | 2020-02-14 12:03 | EKG ---
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
--- NOTE | 2020-02-14 15:49 | CARD ---
MR#: [id number] Date of Study: 02/14/2020 Ordering Physician: TOBIN RANGEL, Referring Physician: TOBIN RANGEL, Tech: Cheri Ellis KHURRAM APPROVED REPORT EXAM: Two-dimensional and M-mode echocardiogram with Doppler and color Doppler. Other Information Quality : Good INDICATION Non STEMI S/P Cardiac Catheterization 2D DIMENSIONS RVDd2.7 (2.9-3.5cm)Left Atrium(2D)2.8 (1.6-4.0cm) IVSd0.8 (0.7-1.1cm)Aortic Root(2D)2.5 (2.0-3.7cm) LVDd4.2 (3.9-5.9cm)LVOT Diameter2.0 (1.8-2.4cm) PWd0.8 (0.7-1.1cm)LVDs1.8 (2.5-4.0cm) FS (%) 30.0 %SV68.3 ml LVEF(%)60.0 (>50%) Aortic Valve AoV Peak Jerome.127.3cm/sAoV VTI22.7cm AO Peak GR.6.5mmHgLVOT VTI 20.20cm AO Mean GR.3mmHgAVA (VTI)2.89cm2 Mitral Valve MV E Amfpmdru98.5cm/sMV DECEL [id number] MV A Wksoahrz94.4cm/sE/A Ratio0.9 TDI Lateral E' P. V9.85cm/sMedial E' P. V6.18cm/s E/Lateral E'6.1E/Medial E'9.8 Tricuspid Valve TR P. Zsyxsesf448ua/sRAP [id number] TR Peak Gr.64cpLpHDCD90xsOy Pulmonary Vein S1 Rcpnfoqa96.3cm/sS2 Wcatqwwn00.93cm/s D2 Edbitine39.9cm/s LEFT VENTRICLE The left ventricle is normal size. There is normal left ventricular wall thickness. The Ejection Frac tion is 55-60%. There is moderate hypokinesis in the basal inferior wall. Transmitral Doppler flow pa ttern is Grade I-abnormal relaxation pattern. RIGHT VENTRICLE The right ventricle is normal size. The right ventricular systolic function is normal. ATRIA The left atrium size is normal. The right atrium size is normal. The interatrial septum is intact wit h no evidence for an atrial septal defect or patent foramen ovale as noted on 2-D or Doppler imaging. AORTIC VALVE The aortic valve is calcified but opens well. Doppler and Color Flow revealed no significant aortic r egurgitation. There is no significant aortic valvular stenosis. MITRAL VALVE The mitral valve is calcified but opens well. Mitral annular calcification is minimal. There is no ev idence of mitral valve prolapse. There is no mitral valve stenosis. Doppler and Color Flow revealed n o mitral valve regurgitation noted. TRICUSPID VALVE The tricuspid valve is normal in structure and function. Doppler and Color Flow revealed trace tricus pid regurgitation. The PA pressure was estimated at 20 mmHg. There is no tricuspid valve stenosis. PULMONIC VALVE The pulmonary valve is normal in structure and function. Doppler and Color Flow revealed trace to mil d pulmonic valvular regurgitation. There is no pulmonic valvular stenosis. GREAT VESSELS The aortic root is normal in size. The ascending aorta is normal in size. The IVC is normal in size a nd collapses >50% with inspiration. PERICARDIAL EFFUSION There is no evidence of significant pericardial effusion. Critical Notification Critical Value: No <Conclusion> There is moderate hypokinesis in the basal inferior wall. The Ejection Fraction is 55-60%. Transmitral Doppler flow pattern is Grade I-abnormal relaxation pattern. Trace tricuspid regurgitation. The PA pressure was estimated at 20 mmHg. There is no evidence of significant pericardial effusion. Signed by : Pop Leyva, Electronically Approved : 02/14/2020 15:48:28
[2020-02-14] MEDS ORDERED: ATORVASTATIN CALCIUM 40 MG TABLET. PO SCH (21:00)
[2020-02-15] MEDS: IV 1/2 NORMAL SALINE 1,000 ML IV SCH (00:57)
[2020-02-15 01:08] LABS: HEMOGLOBIN A1C 5.5 % (4.8-5.6)
[2020-02-15 03:00] VITALS: BP 120/64
[2020-02-15 07:10] VITALS: BP 129/72
[2020-02-15] MEDS ORDERED: PRASUGREL 10 MG TABLET. PO SCH (08:00)
[2020-02-15] MEDS ORDERED: ATOR40TA59 PO (08:12)
[2020-02-15] MEDS ORDERED: PRAS10TA9 PO (08:12)
[2020-02-15] MEDS ORDERED: METO25TA4 PO (08:12)
[2020-02-15] MEDS ORDERED: ASPI325T11 PO (08:12)
[2020-02-15] MEDS ORDERED: ASPI-612 PO (08:13)
[2020-02-15] MEDS: ASPIRIN ENTERIC COATED 325 MG TABLET.DR. PO SCH (09:08)
[2020-02-15] MEDS: METOPROLOL TART IMMED RELEASE 25 MG TABLET. PO SCH (09:08)
--- NOTE | 2020-02-15 09:16 | PDOC ---
PROGRESS NOTES History of Present Illness History of Present Illness VTE Prophylaxis Ordered VTE Prophylaxis Devices: Yes VTE Pharmacological Prophylaxi: No discharg diagnosis acute coronary syndrome Chest pain CAD right coronary artery was a dominant vessel arising from the right sinus of Valsalva that showed 100% occlusion in the midsegment NSTEACS: S/P PCI/CLAUDIO to RCA. EF normal with basal inferior wall hypokinesis reflective of RCA disease History of dyslipidemia Essential hypertension Hyperglycemia Plan hemoglobin A1c Follow recommendations from [employer] tre[employer] consultant as follows: Recommendations 1. [facility] 02/13 , risks and benefits discussed and agreeable to proceed 2. ASA, heparin drip, start on IVF and statin 3. May need to hold BB pending HR trend. 4. TSH and obtain TTE. Repeat EKG MODERATE SEDATION TIME: 52 MINUTES FLUORO TIME: 17.0 MIN DOSE: 57.6 GYCM2 CONTRAST: 154CC VISI INDICATION The indication(s) include : non-STEMI . [facility] Clinical Frailty Scale [facility] Clinical Frailty Scale: Managing Well Heart Failure Heart Failure: No PROCEDURE NARRATIVE After explaining the risks, benefits and alternative options, informed consent was obtained from patient. Patient was brought to the cardiac [employer] [address] [facility] and right wrist was prepped and draped in the usual fashion after confirming a positive modified Rubio's test. Arterial access was obtained in the right radial artery and a 6 [place] sheath was inserted. 6 [place] Loi catheter and 6 [place] JR4 guide were used to perform selective angiography of the left and right coronary arteries. 6 [place] pigtail catheter was used to perform left ventriculography. The following findings were noted. FINDINGS 1. Hemodynamics: Left ventricular end-diastolic pressure of 19 mmHg. No pullback gradient across the aortic valve. 2. Left ventriculography: Posterobasal wall hypokinesis with ejection fraction estimated at 55 to 60%. No significant mitral regurgitation seen. 3. Coronary angiography: a. The left main coronary artery arose from the left sinus of Valsalva, gave rise to the left anterior descending and left circumflex arteries and did not show any significant stenosis. b. The left anterior descending artery did not show any significant stenosis. c. The left circumflex artery did not show any significant stenosis. d. The right coronary artery was a dominant vessel arising from the right sinus of Valsalva that showed 100% occlusion in the midsegment. INTERVENTION The right coronary artery was engaged with 6 [place] JR4 guide catheter and the complete occlusion in the midsegment was crossed with a 0.014 inch Modusly pro- water guidewire. This was predilated with a 2.5 x 12 mm Euphora balloon following which this was successfully treated with 3.5 x 22 and 3.5 x 15 mm overlapping resolute Thiells drug-eluting stents. Follow-up angiography showed resolution of the stenosis to 0% with JAIME-3 distal flow. Patient tolerated the procedure well. Hemostasis was achieved using TR band. There were no immediate complications. JAIME Flow JAIME Flow (Pre-Intervention): JAIME-0 JAIME Flow (Post-Intervention): JAIME-3 Conclusion 1. Severe single-vessel coronary disease with 100% occlusion of the right coronary artery. 2. Posterobasal wall hypokinesis with ejection fraction estimated at 55 to 60%. 3. Successful PCI/drug-eluting stents placement to the right coronary artery. Recommendations 1. Aspirin 325 mg daily for 1 month followed by 81 mg daily 2. Prasugrel 10 mg daily for preferably 1 year 3. Cardiovascular risk factor modification 4. Cardiac rehabilitation referral Signed by : Pavan Leyva, Electronically Approved : 02/14/2020 11:47:50 DICTATED and SIGNED BY: PAVAN LEYVA MD DATE: 02/14/201116 Justicifation of Admission Dx: Justicifation of Admission Dx: Justifications for Admission: Justification of Admission Dx: Yes CHF: Cardiac Arrhythmias d/c planning 36 min Vitals Vitals Vital Signs Date Time Temp Pulse Resp B/P (MAP) Pulse Ox O2 Delivery O2 Flow Rate FiO2 02/15/20 09:08 56 129/72 02/15/20 07:10 98.1 16 98 Room Air 98.1 02/14/20 11:14 2.0 Physical Exam General: Alert, Oriented X3, Cooperative, No acute distress Heart: Regular rate (SR), Normal S1, Normal S2, No murmurs Lungs: Clear Abdomen: Normal bowel sounds, Soft, No tenderness Extremities: No cyanosis, No edema Skin: No breakdown, No significant lesion Labs LABS APPROVED REPORT Technologist: ISAÍAS MCBRIDE RTR Nurse: Roshni Marcelino R.N. Procedure(s) performed: 1. Left heart catheterization, selective coronary angiography and left ventriculography via right transradial approach 2. Successful PCI/drug-eluting stents placement to the right coronary artery. MODERATE SEDATION TIME: 52 MINUTES FLUORO TIME: 17.0 MIN DOSE: 57.6 GYCM2 CONTRAST: 154CC VISI INDICATION The indication(s) include : non-STEMI . [facility] Clinical Frailty Scale [facility] Clinical Frailty Scale: Managing Well Heart Failure Heart Failure: No PROCEDURE NARRATIVE After explaining the risks, benefits and alternative options, informed consent was obtained from patient. Patient was brought to the cardiac [employer] [address] [facility] and right wrist was prepped and draped in the usual fashion after confirming a positive modified Rubio's test. Arterial access was obtained in the right radial artery and a 6 [place] sheath was inserted. 6 [place] Loi catheter and 6 [place] JR4 guide were used to perform selective angiography of the left and right coronary arteries. 6 [place] pigtail catheter was used to perform left ventriculography. The following findings were noted. FINDINGS 1. Hemodynamics: Left ventricular end-diastolic pressure of 19 mmHg. No pullback gradient across the aortic valve. 2. Left ventriculography: Posterobasal wall hypokinesis with ejection fraction estimated at 55 to 60%. No significant mitral regurgitation seen. 3. Coronary angiography: a. The left main coronary artery arose from the left sinus of Valsalva, gave rise to the left anterior descending and left circumflex arteries and did not show any significant stenosis. b. The left anterior descending artery did not show any significant stenosis. c. The left circumflex artery did not show any significant stenosis. d. The right coronary artery was a dominant vessel arising from the right sinus of Valsalva that showed 100% occlusion in the midsegment. INTERVENTION The right coronary artery was engaged with 6 [place] JR4 guide catheter and the complete occlusion in the midsegment was crossed with a 0.014 inch Modusly pro- water guidewire. This was predilated with a 2.5 x 12 mm Euphora balloon following which this was successfully treated with 3.5 x 22 and 3.5 x 15 mm overlapping resolute Thiells drug-eluting stents. Follow-up angiography showed resolution of the stenosis to 0% with JAIME-3 distal flow. Patient tolerated the procedure well. Hemostasis was achieved using TR band. There were no immediate complications. JAIME Flow JAIME Flow (Pre-Intervention): JAIME-0 JAIME Flow (Post-Intervention): JAIME-3 Conclusion 1. Severe single-vessel coronary disease with 100% occlusion of the right cor onary artery. 2. Posterobasal wall hypokinesis with ejection fraction estimated at 55 to 60%. 3. Successful PCI/drug-eluting stents placement to the right coronary artery. Recommendations 1. Aspirin 325 mg daily for 1 month followed by 81 mg daily 2. Prasugrel 10 mg daily for preferably 1 year 3. Cardiovascular risk factor modification 4. Cardiac rehabilitation referral Signed by : Pavan Leyva, Electronically Approved : 02/14/2020 11:47:50 DICTATED and SIGNED BY: PAVAN LEYVA MD DATE: 02/14/20 1117 Aortic Valve AoV Peak Jerome. 127.3cm/s AoV VTI 22.7cm AO Peak GR. 6.5mmHg LVOT VTI 20.20cm AO Mean GR. 3mmHg JOE (VTI) 2.89cm2 Mitral Valve MV E Velocity 60.5cm/s MV DECEL TIME 238ms MV A Velocity 68.4cm/s E/A Ratio 0.9 TDI Lateral E' P. V 9.85cm/s Medial E' P. V 6.18cm/s E/Lateral E' 6.1 E/Medial E' 9.8 Tricuspid Valve TR P. Velocity 206cm/s RAP ESTIMATE 3mmHg TR Peak Gr. 17mmHg RVSP 20mmHg Pulmonary Vein S1 Velocity 65.3cm/s S2 Velocity 44.93cm/s D2 Velocity 44.9cm/s LEFT VENTRICLE The left ventricle is normal size. There is normal left ventricular wall thickness. The Ejection Fraction is 55-60%. There is moderate hypokinesis in the basal inferior wall. Transmitral Doppler flow pattern is Grade I-abnormal relaxation pattern. RIGHT VENTRICLE The right ventricle is normal size. The right ventricular systolic function is normal. ATRIA The left atrium size is normal. The right atrium size is normal. The interatrial septum is intact with no evidence for an atrial septal defect or patent foramen ovale as noted on 2-D or Doppler imaging. AORTIC VALVE The aortic valve is calcified but opens well. Doppler and Color Flow revealed no significant aortic regurgitation. There is no significant aortic valvular stenosis. MITRAL VALVE The mitral valve is calcified but opens well. Mitral annular calcification is minimal. There is no evidence of mitral valve prolapse. There is no mitral valve stenosis. Doppler and Color Flow revealed no mitral valve regurgitation noted. TRICUSPID VALVE The tricuspid valve is normal in structure and function. Doppler and Color Flow revealed trace tricuspid regurgitation. The PA pressure was estimated at 20 mmHg. There is no tricuspid valve stenosis. PULMONIC VALVE The pulmonary valve is normal in structure and function. Doppler and Color Flow revealed trace to mild pulmonic valvular regurgitation. There is no pulmonic valvular stenosis. GREAT VESSELS The aortic root is normal in size. The ascending aorta is normal in size. The IVC is normal in size and collapses >50% with inspiration. PERICARDIAL EFFUSION There is no evidence of significant pericardial effusion. Critical Notification Critical Value: No <Conclusion> There is moderate hypokinesis in the basal inferior wall. The Ejection Fraction is 55-60%. Transmitral Doppler flow pattern is Grade I-abnormal relaxation pattern. Trace tricuspid regurgitation. The PA pressure was estimated at 20 mmHg. There is no evidence of significant pericardial effusion. Signed by : Pavan Leyva, Electronically Approved : 02/14/2020 15:48:28 DICTATED and SIGNED BY: PAVAN LEYVA MD DATE: 02/14/20 1531 Assessment and Plan Assessmemt and Plan Problems Medical Problems: (1) Elevated d-dimer Status: Acute (2) NSTEMI (non-ST elevated myocardial infarction) Status: Acute Comment Review of Relevant I have reviewed the following items niecy (where applicable) has been applied. Labs Laboratory Tests Test 02/13/20 15:50 02/13/20 17:10 02/13/20 19:42 02/13/20 22:40 White Blood Count 6.5 x10^3/uL (4.0-11.0) Red Blood Count 4.69 x10^6/uL (3.50-5.40) Hemoglobin 14.1 g/dL (12.0-15.5) Hematocrit 40.4 % (36.0-47.0) Mean Corpuscular Volume 86 fL (79-100) Mean Corpuscular Hemoglobin 30 pg (25-35) Mean Corpuscular Hemoglobin Concent 35 g/dL (31-37) Red Cell Distribution Width 13.0 % (11.5-14.5) Platelet Count 276 x10^3/uL (140-400) Neutrophils (%) (Auto) 63 % (31-73) Lymphocytes (%) (Auto) 28 % (24-48) Monocytes (%) (Auto) 7 % (0-9) Eosinophils (%) (Auto) 1 % (0-3) Basophils (%) (Auto) 1 % (0-3) Neutrophils # (Auto) 4.1 x10^3/uL (1.8-7.7) Lymphocytes # (Auto) 1.9 x10^3/uL (1.0-4.8) Monocytes # (Auto) 0.5 x10^3/uL (0.0-1.1) Eosinophils # (Auto) 0.0 x10^3/uL (0.0-0.7) Basophils # (Auto) 0.0 x10^3/uL (0.0-0.2) Prothrombin Time 12.5 SEC (11.7-14.0) Prothromb Time International Ratio 1.0 (0.8-1.1) Activated Partial Thromboplast Time 29 SEC (24-38) D-Dimer (Bouchra) 0.80 ug/mlFEU (0.00-0.50) Sodium Level 139 mmol/L (136-145) Potassium Level 3.6 mmol/L (3.5-5.1) Chloride Level 102 mmol/L (98-107) Carbon Dioxide Level 27 mmol/L (21-32) Anion Gap 10 (6-14) Blood Urea Nitrogen 8 mg/dL (7-20) Creatinine 0.9 mg/dL (0.6-1.0) Estimated GFR (Cockcroft-Gault) 62.6 BUN/Creatinine Ratio 9 (6-20) Glucose Level 137 mg/dL (70-99) Calcium Level 8.8 mg/dL (8.5-10.1) Magnesium Level 2.0 mg/dL (1.8-2.4) Total Bilirubin 0.3 mg/dL (0.2-1.0) Aspartate Amino Transf (AST/SGOT) 41 U/L (15-37) Alanine Aminotransferase (ALT/SGPT) 23 U/L (14-59) Alkaline Phosphatase 120 U/L (46-116) Creatine Kinase 325 U/L (26-192) Creatine Kinase MB (Mass) 18.7 ng/mL (0.0-3.6) Creatine Kinase MB Relative Index 5.8 % (0-4) Troponin I Quantitative 1.663 ng/mL (0.000-0.055) 2.604 ng/mL (0.000-0.055) 3.640 ng/mL (0.000-0.055) UL-Hsf-H-Type Natriuretic Peptide 1221 pg/mL (0-124) Total Protein 7.6 g/dL (6.4-8.2) Albumin 3.8 g/dL (3.4-5.0) Albumin/Globulin Ratio 1.0 (1.0-1.7) Lipase 177 U/L (73-393) Urine Collection Type Unknown Urine Color Yellow Urine Clarity Clear Urine pH 7.5 (<5.0-8.0) Urine Specific Fellows <=1.005 (1.000-1.030) Urine Protein Negative mg/dL (NEG-TRACE) Urine Glucose (UA) Negative mg/dL (NEG) Urine Ketones (Stick) Negative mg/dL (NEG) Urine Blood Negative (NEG) Urine Nitrite Negative (NEG) Urine Bilirubin Negative (NEG) Urine Urobilinogen Dipstick 0.2 mg/dL (0.2 mg/dL) Urine Leukocyte Esterase Negative (NEG) Urine RBC Occ /HPF (0-2) Urine WBC Occ /HPF (0-4) Urine Squamous Epithelial Cells Few /LPF Urine Bacteria 0 /HPF (0-FEW) Heparin Anti-Xa Act, Unfractionated 0.55 IU/mL (0.30-0.70) Test 02/14/20 04:40 02/14/20 04:46 Troponin I Quantitative 6.436 ng/mL (0.000-0.055) Heparin Anti-Xa Act, Unfractionated 0.42 IU/mL (0.30-0.70) Hemoglobin A1c 5.5 % (4.8-5.6) Triglycerides Level 34 mg/dL (0-150) Cholesterol Level 254 mg/dL (0-200) LDL Cholesterol, Calculated 133 mg/dL (0-100) VLDL Cholesterol, Calculated 7 mg/dL (0-40) Non-HDL Cholesterol Calculated 140 mg/dL (0-129) HDL Cholesterol 114 mg/dL (40-60) Cholesterol/HDL Ratio 2.2 Thyroid Stimulating Hormone (TSH) 2.389 uIU/mL (0.358-3.74) Medications Current Medications Aspirin (Karen Aspirin) 325 mg 1X ONCE PO Last administered on 02/13/20at 16:09; Start 02/13/20 at 15:45; Stop 02/13/20 at 16:06; Status DC Sodium Chloride 1,000 ml @ 1,000 mls/hr 1X ONCE IV Last administered on 02/13/20at 16:09; Start 02/13/20 at 15:45; Stop 02/13/20 at 16:44; Status DC Heparin Sodium (Porcine) (Heparin Sodium) 4,000 unit 1X ONCE IV Last adminis tered on 02/13/20at 16:40; Start 02/13/20 at 16:30; Stop 02/14/20 at 12:07; Status DC Heparin Sodium/ Dextrose 250 ml @ 8.184 mls/ hr CONT PRN IV PER PROTOCOL Last administered on 02/13/20at 16:39; Start 02/13/20 at 16:30; Stop 02/14/20 at 12:06; Status DC Heparin Sodium (Porcine) (Heparin Sodium) 1,700 unit PRN Q6HRS PRN IV FOR UFH LEVEL LESS THAN 0.2; Start 02/13/20 at 16:30; Stop 02/14/20 at 12:06; Status DC Ondansetron HCl (Zofran) 4 mg PRN Q8HRS PRN IV NAUSEA/VOMITING; Start 02/13/20 at 16:45; Stop 02/14/20 at 16:44; Status DC Fentanyl Citrate (Fentanyl 2ml Vial) 25 mcg PRN Q2HRS PRN IV PAIN Last administered on 02/14/20at 02:28; Start 02/13/20 at 16:45 Iohexol (Omnipaque 350 Mg/ml) 90 ml 1X ONCE IV Last administered on 02/13/20at 17:24; Start 02/13/20 at 17:15; Stop 02/13/20 at 17:16; Status DC Info (CONTRAST GIVEN -- Rx MONITORING) 1 each PRN DAILY PRN MC SEE COMMENTS; Start 02/13/20 at 17:15; Stop 02/15/20 at 17:14 Aspirin (Ecotrin) 325 mg DAILYWBKFT PO Last administered on 02/15/20at 09:08; Start 02/14/20 at 08:00 Metoprolol Tartrate (Lopressor) 12.5 mg BID PO Last administered on 02/15/20at 09:08; Start 02/14/20 at 09:00 Atorvastatin Calcium (Lipitor) 40 mg QHS PO Last administered on 02/14/20at 22:54; Start 02/14/20 at 21:00 Sodium Chloride 1,000 ml @ 75 mls/hr 1X ONCE IV Last administered on 02/14/20at 08:41; Start 02/14/20 at 08:30; Stop 02/14/20 at 18:04; Status DC Iodixanol (Visipaque 320) 100 ml STK-MED ONCE .ROUTE ; Start 02/14/20 at 09:52; Stop 02/14/20 at 09:52; Status DC Lidocaine HCl (Xylocaine-Mpf 1% 2ml Vial) 2 ml STK-MED ONCE .ROUTE ; Start 02/14/20 at 09:52; Stop 02/14/20 at 09:52; Status DC Heparin Sodium/ Sodium Chloride 500 ml @ As Directed STK-MED ONCE .ROUTE ; Start 02/14/20 at 09:52; Stop 02/14/20 at 09:52; Status DC Fentanyl Citrate (Fentanyl 2ml Vial) 100 mcg STK-MED ONCE .ROUTE ; Start 02/14/20 at 09:52; Stop 02/14/20 at 09:53; Status DC Midazolam HCl (Versed) 2 mg STK-MED ONCE .ROUTE ; Start 02/14/20 at 09:53; Stop 02/14/20 at 09:53; Status DC Heparin Sodium (Porcine) (Heparin Sodium) 10,000 unit STK-MED ONCE .ROUTE ; Start 02/14/20 at 09:53; Stop 02/14/20 at 09:53; Status DC Verapamil HCl (Verapamil) 5 mg STK-MED ONCE .ROUTE ; Start 02/14/20 at 09:53; Stop 02/14/20 at 09:53; Status DC Nitroglycerin (Nitroglycerin) 200 mcg STK-MED ONCE .ROUTE ; Start 02/14/20 at 09:55; Stop 02/14/20 at 09:55; Status DC Bivalirudin (Angiomax) 250 mg STK-MED ONCE IV ; Start 02/14/20 at 10:34; Stop 02/14/20 at 10:34; Status DC Nitroglycerin (Nitroglycerin) 200 mcg 1X ONCE IART Last administered on 02/14/20at 11:09; Start 02/14/20 at 10:45; Stop 02/14/20 at 10:53; Status DC Verapamil HCl (Verapamil) 2.5 mg 1X ONCE IART Last administered on 02/14/20at 11:11; Start 02/14/20 at 10:45; Stop 02/14/20 at 10:53; Status DC Heparin Sodium (Porcine) (Heparin Sodium) 2,500 unit 1X ONCE IART Last administered on 02/14/20at 11:12; Start 02/14/20 at 10:45; Stop 02/14/20 at 10:53; Status DC Heparin Sodium/ Sodium Chloride (HEPARIN for ARTERIAL LINE FLUSH) 1,000 unit 1X ONCE IART Last administered on 02/14/20at 11:09; Start 02/14/20 at 10:45; Stop 02/14/20 at 10:53; Status DC Midazolam HCl (Versed) 2 mg 1X ONCE IV Last administered on 02/14/20at 11:11; Start 02/14/20 at 10:45; Stop 02/14/20 at 10:53; Status DC Fentanyl Citrate (Fentanyl 2ml Vial) 100 mcg 1X ONCE IV Last administered on 02/14/20at 11:10; Start 02/14/20 at 10:45; Stop 02/14/20 at 10:53; Status DC Iodixanol (Visipaque 320) 100 ml 1X ONCE IART Last administered on 02/14/20at 11:10; Start 02/14/20 at 10:45; Stop 02/14/20 at 10:53; Status DC Bivalirudin (Angiomax) 250 mg 1X ONCE IV Last administered on 02/14/20at 11:10; Start 02/14/20 at 10:45; Stop 02/14/20 at 10:53; Status DC Lidocaine HCl (Xylocaine-Mpf 1% 2ml Vial) 0.5 ml 1X ONCE INJ Last administered on 02/14/20at 11:11; Start 02/14/20 at 10:45; Stop 02/14/20 at 10:53; Status DC Prasugrel (Effient) 10 mg [facility]-MED ONCE .ROUTE ; Start 02/14/20 at 10:57; Stop 02/14/20 at 10:58; Status DC Nitroglycerin (Nitroglycerin) 200 mcg 1X ONCE ICAR Last administered on 02/14/20at 11:09; Start 02/14/20 at 11:00; Stop 02/14/20 at 11:01; Status DC Prasugrel (Effient) 60 mg 1X ONCE PO Last administered on 02/14/20at 11:10; Start 02/14/20 at 11:00; Stop 02/14/20 at 11:01; Status DC Sodium Chloride (Normal Saline Flush) 3 ml QSHIFT PRN IV AFTER MEDS AND BLOOD DRAWS; Start 02/14/20 at 11:45 Sodium Chloride 1,000 ml @ 75 mls/hr [id number] IV Last administered on 02/14/20at 11:37; Start 02/14/20 at 11:37 Prasugrel (Effient) 10 mg DAILYWBKFT PO Last administered on 02/15/20at 09:07; Start 02/15/20 at 08:00 Acetaminophen (Tylenol) 650 mg PRN Q6HRS PRN PO MILD PAIN / TEMP > 100.3'F; Start 02/14/20 at 11:45 Nitroglycerin (Nitrostat) 0.4 mg PRN Q5MIN PRN SL CHEST PAIN; Start 02/14/20 at 11:45 Active Scripts Active Reported Pantoprazole Sodium (Pantoprazole Sodium) 40 Mg Tablet.dr 40 Mg PO DAILYAC Amlodipine Besylate 10 Mg Tablet 10 Mg PO DAILY Vitals/I & O Vital Sign - Last 24 Hours 02/14/20 02/14/20 02/14/20 02/14/20 11:00 11:10 11:11 11:14 Temp Pulse 66 66 Resp 14 15 B/P (MAP) Pulse Ox 98 98 O2 Delivery Room Air Nasal Cannula Nasal Cannula O2 Flow Rate 2.0 2.0 02/14/20 02/14/20 02/14/20 02/14/20 11:25 11:40 11:55 12:10 Temp 97.7 97.7 Pulse 48 52 52 52 Resp 18 20 20 20 B/P (MAP) 143/74 (97) 114/54 (74) 124/63 (83) 117/60 (79) Pulse Ox 94 O2 Delivery Room Air Room Air Room Air Room Air 02/14/20 02/14/20 02/14/20 02/14/20 12:40 13:10 15:00 19:20 Temp 97.6 98.0 97.6 98.0 Pulse 52 52 55 62 Resp 20 20 18 20 B/P (MAP) 118/63 (81) 132/72 (92) 114/54 (74) 124/70 (88) Pulse Ox 97 98 O2 Delivery Room Air Room Air Room Air Room Air 02/14/20 02/14/20 02/14/20 02/15/20 20:00 22:40 22:55 03:00 Temp 97.9 98.1 97.9 98.1 Pulse 55 62 57 Resp 18 18 B/P (MAP) 119/58 (78) 124/70 120/64 (82) Pulse Ox 96 97 O2 Delivery Room Air Room Air Room Air 02/15/20 02/15/20 07:10 09:08 Temp 98.1 98.1 Pulse 56 56 Resp 16 B/P (MAP) 129/72 (91) 129/72 Pulse Ox 98 O2 Delivery Room Air Intake and Output 02/14/20 02/14/20 02/15/20 15:00 23:00 07:00 Intake Total 400 ml 300 ml 320 ml Balance 400 ml 300 ml 320 ml HESHAM ALVARENGA MD Feb 15, 2020 09:16
[2020-02-15 10:33] VITALS: BP 127/67
--- NOTE | 2020-02-15 10:40 | NUR ---
SS following up with discharge planning. SS reviewed pt chart and discussed with pt RN. Pt is currently on room air. Pt had heart cath on 02/14/2020. Cardiology signed off. Per RN, pt will discharge to home today. SS will continue to follow for discharge planning.
[2020-02-15 11:32] LABS: CREATININE 0.9 mg/dL (0.6-1.0); GFR 62.6
--- NOTE | 2020-02-15 12:09 | PDOC ---
TOBIN RANGEL WRAPPING MACHINE OPERATOR 02/15/20 1209: CARDIO Progress Notes Date and Time Date of Service 02/15/2020 Time of Evaluation 1000 Subjective Subjective: No Chest Pain, No shortness of breath, No Palpitations Vitals Vitals Vital Signs Date Time Temp Pulse Resp B/P (MAP) Pulse Ox O2 Delivery O2 Flow Rate FiO2 02/15/20 10:33 98.7 56 16 127/67 (87) 99 Room Air 98.7 02/14/20 11:14 2.0 Weight Weight [ ] Input and Output Intake and Output Intake and Output 02/15/20 07:00 Intake Total 1020 ml Balance 1020 ml Intake Oral 1020 ml # Voids 1 Laboratory Labs Laboratory Tests Test 02/15/20 10:56 Sodium Level 140 mmol/L (136-145) Potassium Level 4.0 mmol/L (3.5-5.1) Chloride Level 104 mmol/L (98-107) Carbon Dioxide Level 29 mmol/L (21-32) Anion Gap 7 (6-14) Blood Urea Nitrogen 13 mg/dL (7-20) Creatinine 0.9 mg/dL (0.6-1.0) Estimated GFR (Cockcroft-Gault) 62.6 Glucose Level 84 mg/dL (70-99) Calcium Level 8.0 mg/dL (8.5-10.1) Physical Exam HEENT: Neck Supple W Full Motion Chest: Symmetric LUNGS: Clear to Auscultation Heart: S1S2, RRR (SR) Abdomen: Soft N/T Extremities: No Edema, No Calf Tenderness Neurology: alert, oriented, follow commands Other Exams right radial arteriotomy site intact, no swelling, no erythema, neurovascular status to right hand intact Assessment Assessment 1. NSTEACS: S/P PCI/CLAUDIO to RCA. EF normal with basal inferior wall hypokinesis reflective of RCA disease 2. CAD: as above 2. HLP 3. Asymptomatic SB: 50s, no pauses with associated with RCA disease. SR stable 4. HTN: controlled 5. Arrhythmia: brief episode of reperfusion brief PSVTs. BMP WNL. Recommendations 1. Cardiac rehab, dietitian consult 2. ASA 325 mg for 1 month then 81 mg thereafter. Effient for at least 1 yr. 3. Lipitor 40 mg po daily and metoprolol 12.5 mg po bid. 4. Stop home norvasc and HBPM and will consider restart at half the dose as an outpt per BP trend 5. Follow up in office as scheduled Justicifation of Admission Dx: Justifications for Admission: Justification of Admission Dx: Yes CHF: Cardiac Arrhythmias PAVAN KELLY MD 02/16/20 0826: CARDIO Progress Notes Assessment Assessment Patient seen and examined 02/15/20. Agree with DIRECTOR PHARMACEUTICAL's assessment and plan. s/p PCI/CLAUDIO to RCA, presently chest pain-free. Telemetry did not show any significant arrhythmias. LVEF preserved. Continue current medications including DAPT. Follow-up as scheduled. TOBIN RANGEL APRN Feb 15, 2020 12:09 PAVAN KELLY MD Feb 16, 2020 08:26
[2020-02-15] MEDS ORDERED: CALCIUM CARBONATE 500 MG TAB.CHEW PO PRN (12:30)
--- NOTE | 2020-02-15 13:54 | PDOC3 ---
Discharge Summary Date of Admission: Feb 13, 2020 Date of Discharge: Feb 15, 2020 Follow-Up: 3-5 days Admitting Diagnosis comment: discharge diagnosis acute coronary syndrome Chest pain CAD right coronary artery was a dominant vessel arising from the right sinus of Valsalva that showed 100% occlusion in the midsegment NSTEACS: S/P PCI/CLAUDIO to RCA. EF normal with basal inferior wall hypokinesis reflective of RCA disease History of dyslipidemia Essential hypertension Hyperglycemia Plan hemoglobin A1c Follow recommendations from universal branch consultant as follows: Recommendations 1. LHC 02/13 , risks and benefits discussed and agreeable to proceed 2. ASA, heparin drip, start on IVF and statin 3. May need to hold BB pending HR trend. 4. TSH and obtain TTE. Repeat EKG MODERATE SEDATION TIME: 52 MINUTES FLUORO TIME: 17.0 MIN DOSE: 57.6 GYCM2 CONTRAST: 154CC VISI INDICATION The indication(s) include : non-STEMI . [facility] Clinical Frailty Scale [facility] Clinical Frailty Scale: Managing Well Heart Failure Heart Failure: No PROCEDURE NARRATIVE After explaining the risks, benefits and alternative options, informed consent was obtained from patient. Patient was brought to the cardiac Lumber Tripper and right wrist was prepped and draped in the usual fashion after confirming a positive modified Rubio's test. Arterial access was obtained in the right radial artery and a 6 Uzbek sheath was inserted. 6 Uzbek Loi catheter and 6 Uzbek JR4 guide were used to perform selective angiography of the left and right coronary arteries. 6 Uzbek pigtail catheter was used to perform left ventriculography. The following findings were noted. FINDINGS 1. Hemodynamics: Left ventricular end-diastolic pressure of 19 mmHg. No pullback gradient across the aortic valve. 2. Left ventriculography: Posterobasal wall hypokinesis with ejection fraction estimated at 55 to 60%. No significant mitral regurgitation seen. 3. Coronary angiography: a. The left main coronary artery arose from the left sinus of Valsalva, gave rise to the left anterior descending and left circumflex arteries and did not show any significant stenosis. b. The left anterior descending artery did not show any significant stenosis. c. The left circumflex artery did not show any significant stenosis. d. The right coronary artery was a dominant vessel arising from the right sinus of Valsalva that showed 100% occlusion in the midsegment. INTERVENTION The right coronary artery was engaged with 6 Uzbek JR4 guide catheter and the complete occlusion in the midsegment was crossed with a 0.014 inch [employer] pro- water guidewire. This was predilated with a 2.5 x 12 mm Euphora balloon following which this was successfully treated with 3.5 x 22 and 3.5 x 15 mm overlapping resolute Derek drug-eluting stents. Follow-up angiography showed resolution of the stenosis to 0% with JAIME-3 distal flow. Patient tolerated the procedure well. Hemostasis was achieved using TR band. There were no immediate complications. JAIME Flow JAIME Flow (Pre-Intervention): JAIME-0 JAIME Flow (Post-Intervention): JAIME-3 Conclusion 1. Severe single-vessel coronary disease with 100% occlusion of the right coronary artery. 2. Posterobasal wall hypokinesis with ejection fraction estimated at 55 to 60%. 3. Successful PCI/drug-eluting stents placement to the right coronary artery. Recommendations 1. Aspirin 325 mg daily for 1 month followed by 81 mg daily 2. Prasugrel 10 mg daily for preferably 1 year 3. Cardiovascular risk factor modification 4. Cardiac rehabilitation referral Signed by : Pavan Kelly, Electronically Approved : 02/14/2020 11:47:50 DICTATED and SIGNED BY: PAVAN KELLY MD DATE: 02/14/201116 Justicifation of Admission Dx: Justicifation of Admission Dx: Justifications for Admission: Justification of Admission Dx: Yes CHF: Cardiac Arrhythmias d/c planning 36 min Vitals Vitals Vital Signs Date Time Temp Pulse Resp B/P (MAP) Pulse Ox O2 Delivery O2 Flow Rate FiO2 02/15/20 09:08 56 129/72 02/15/20 07:10 98.1 16 98 Room Air 98.1 02/14/20 11:14 2.0 Physical Exam General: Alert, Oriented X3, Cooperative, No acute distress Heart: Regular rate (SR), Normal S1, Normal S2, No murmurs Lungs: Clear Abdomen: Normal bowel sounds, Soft, No tenderness Extremities: No cyanosis, No edema Skin: No breakdown, No significant lesion Labs LABS APPROVED REPORT Technologist: ISAÍAS MCBRIDE RTR Nurse: Roshni Marcelino R.N. Procedure(s) performed: 1. Left heart catheterization, selective coronary angiography and left ventriculography via right transradial approach 2. Successful PCI/drug-eluting stents placement to the right coronary artery. MODERATE SEDATION TIME: 52 MINUTES FLUORO TIME: 17.0 MIN DOSE: 57.6 GYCM2 CONTRAST: 154CC VISI INDICATION The indication(s) include : non-STEMI . [facility] Clinical Frailty Scale [facility] Clinical Frailty Scale: Managing Well Heart Failure Heart Failure: No PROCEDURE NARRATIVE After explaining the risks, benefits and alternative options, informed consent was obtained from patient. Patient was brought to the cardiac Lumber Tripper and right wrist was prepped and draped in the usual fashion after confirming a positive modified Rubio's test. Arterial access was obtained in the right radial artery and a 6 Uzbek sheath was inserted. 6 Uzbek Loi catheter and 6 Uzbek JR4 guide were used to perform selective angiography of the left and right coronary arteries. 6 Uzbek pigtail catheter was used to perform left ventriculography. The following findings were noted. FINDINGS 1. Hemodynamics: Left ventricular end-diastolic pressure of 19 mmHg. No pullback gradient across the aortic valve. 2. Left ventriculography: Posterobasal wall hypokinesis with ejection fraction estimated at 55 to 60%. No significant mitral regurgitation seen. 3. Coronary angiography: a. The left main coronary artery arose from the left sinus of Valsalva, gave rise to the left anterior descending and left circumflex arteries and did not show any significant stenosis. b. The left anterior descending artery did not show any significant stenosis. c. The left circumflex artery did not show any significant stenosis. d. The right coronary artery was a dominant vessel arising from the right sinus of Valsalva that showed 100% occlusion in the midsegment. INTERVENTION The right coronary artery was engaged with 6 Uzbek JR4 guide catheter and the complete occlusion in the midsegment was crossed with a 0.014 inch [employer] pro- water guidewire. This was predilated with a 2.5 x 12 mm Euphora balloon following which this was successfully treated with 3.5 x 22 and 3.5 x 15 mm overlapping resolute [place] drug-eluting stents. Follow-up angiography showed resolution of the stenosis to 0% with JAIME-3 distal flow. Patient tolerated the procedure well. Hemostasis was achieved using TR band. There were no immediate complications. JAIME Flow JAIME Flow (Pre-Intervention): JAIME-0 JAIME Flow (Post-Intervention): JAIME-3 Conclusion 1. Severe single-vessel coronary disease with 100% occlusion of the right coronary artery. 2. Posterobasal wall hypokinesis with ejection fraction estimated at 55 to 60%. 3. Successful PCI/drug-eluting stents placement to the right coronary artery. Recommendations 1. Aspirin 325 mg daily for 1 month followed by 81 mg daily 2. Prasugrel 10 mg daily for preferably 1 year 3. Cardiovascular risk factor modification 4. Cardiac rehabilitation referral Signed by : Pavan Kelly, Electronically Approved : 02/14/2020 11:47:50 DICTATED and SIGNED BY: PAVAN KELLY MD DATE: 02/14/20 1117 Aortic Valve AoV Peak Jerome. 127.3cm/s AoV VTI 22.7cm AO Peak GR. 6.5mmHg LVOT VTI 20.20cm AO Mean GR. 3mmHg JOE (VTI) 2.89cm2 Mitral Valve MV E Velocity 60.5cm/s MV DECEL TIME 238ms MV A Velocity 68.4cm/s E/A Ratio 0.9 TDI Lateral E' P. V 9.85cm/s Medial E' P. V 6.18cm/s E/Lateral E' 6.1 E/Medial E' 9.8 Tricuspid Valve TR P. Velocity 206cm/s RAP ESTIMATE 3mmHg TR Peak Gr. 17mmHg RVSP 20mmHg Pulmonary Vein S1 Velocity 65.3cm/s S2 Velocity 44.93cm/s D2 Velocity 44.9cm/s LEFT VENTRICLE The left ventricle is normal size. There is normal left ventricular wall thickness. The Ejection Fraction is 55-60%. There is moderate hypokinesis in the basal inferior wall. Transmitral Doppler flow pattern is Grade I-abnormal relaxation pattern. RIGHT VENTRICLE The right ventricle is normal size. The right ventricular systolic function is normal. ATRIA The left atrium size is normal. The right atrium size is normal. The interatrial septum is intact with no evidence for an atrial septal defect or patent foramen ovale as noted on 2-D or Doppler imaging. AORTIC VALVE The aortic valve is calcified but opens well. Doppler and Color Flow revealed no significant aortic regurgitation. There is no significant aortic valvular stenosis. MITRAL VALVE The mitral valve is calcified but opens well. Mitral annular calcification is minimal. There is no evidence of mitral valve prolapse. There is no mitral valve stenosis. Doppler and Color Flow revealed no mitral valve regurgitation noted. TRICUSPID VALVE The tricuspid valve is normal in structure and function. Doppler and Color Flow revealed trace tricuspid regurgitation. The PA pressure was estimated at 20 mmHg. There is no tricuspid valve stenosis. PULMONIC VALVE The pulmonary valve is normal in structure and function. Doppler and Color Flow revealed trace to mild pulmonic valvular regurgitation. There is no pulmonic valvular stenosis. GREAT VESSELS The aortic root is normal in size. The ascending aorta is normal in size. The IVC is normal in size and collapses >50% with inspiration. PERICARDIAL EFFUSION There is no evidence of significant pericardial effusion. Critical Notification Critical Value: No <Conclusion> There is moderate hypokinesis in the basal inferior wall. The Ejection Fraction is 55-60%. Transmitral Doppler flow pattern is Grade I-abnormal relaxation pattern. Trace tricuspid regurgitation. The PA pressure was estimated at 20 mmHg. There is no evidence of significant pericardial effusion. Signed by : Pavan Kelly, Electronically Approved : 02/14/2020 15:48:28 DICTATED and SIGNED BY: PAVAN KELLY MD DATE: 02/14/20 1531 Assessment and Plan Assessmemt and Plan Problems Medical Problems: (1) Elevated d-dimer Status: Acute (2) NSTEMI (non-ST elevated myocardial infarction) Status: Acute FINAL DIAGNOSIS Problems Medical Problems: (1) Elevated d-dimer Status: Acute (2) NSTEMI (non-ST elevated myocardial infarction) Status: Acute Brief Hospital Course Ms. Manjarrez is a 64 old [sex] who presented with [ NSTEMI ] CONDITION AT DISCHARGE: Improved Discharge Medications Current Medications Aspirin (Karen Aspirin) 325 mg 1X ONCE PO Last administered on 02/13/20at 16:09; Start 02/13/20 at 15:45; Stop 02/13/20 at 16:06; Status DC Sodium Chloride 1,000 ml @ 1,000 mls/hr 1X ONCE IV Last administered on 02/13/20at 16:09; Start 02/13/20 at 15:45; Stop 02/13/20 at 16:44; Status DC Heparin Sodium (Porcine) (Heparin Sodium) 4,000 unit 1X ONCE IV Last administered on 02/13/20at 16:40; Start 02/13/20 at 16:30; Stop 02/14/20 at 12:07; Status DC Heparin Sodium/ Dextrose 250 ml @ 8.184 mls/ hr CONT PRN IV PER PROTOCOL Last administered on 02/13/20at 16:39; Start 02/13/20 at 16:30; Stop 02/14/20 at 12:06; Status DC Heparin Sodium (Porcine) (Heparin Sodium) 1,700 unit PRN Q6HRS PRN IV FOR UFH LEVEL LESS THAN 0.2; Start 02/13/20 at 16:30; Stop 02/14/20 at 12:06; Status DC Ondansetron HCl (Zofran) 4 mg PRN Q8HRS PRN IV NAUSEA/VOMITING; Start 02/13/20 at 16:45; Stop 02/14/20 at 16:44; Status DC Fentanyl Citrate (Fentanyl 2ml Vial) 25 mcg PRN Q2HRS PRN IV PAIN Last administered on 02/14/20at 02:28; Start 02/13/20 at 16:45 Iohexol (Omnipaque 350 Mg/ml) 90 ml 1X ONCE IV Last administered on 02/13/20at 17:24; Start 02/13/20 at 17:15; Stop 02/13/20 at 17:16; Status DC Info (CONTRAST GIVEN -- Rx MONITORING) 1 each PRN DAILY PRN MC SEE COMMENTS; Start 02/13/20 at 17:15; Stop 02/15/20 at 17:14 Aspirin (Ecotrin) 325 mg DAILYWBKFT PO Last administered on 02/15/20at 09:08; Start 02/14/20 at 08:00 Metoprolol Tartrate (Lopressor) 12.5 mg BID PO Last administered on 02/15/20at 09:08; Start 02/14/20 at 09:00 Atorvastatin Calcium (Lipitor) 40 mg QHS PO Last administered on 02/14/20at 22:54; Start 02/14/20 at 21:00 Sodium Chloride 1,000 ml @ 75 mls/hr 1X ONCE IV Last administered on 02/14/20at 08:41; Start 02/14/20 at 08:30; Stop 02/14/20 at 18:04; Status DC Iodixanol (Visipaque 320) 100 ml STK-MED ONCE .ROUTE ; Start 02/14/20 at 09:52; Stop 02/14/20 at 09:52; Status DC Lidocaine HCl (Xylocaine-Mpf 1% 2ml Vial) 2 ml STK-MED ONCE .ROUTE ; Start 02/14/20 at 09:52; Stop 02/14/20 at 09:52; Status DC Heparin Sodium/ Sodium Chloride 500 ml @ As Directed STK-MED ONCE .ROUTE ; Start 02/14/20 at 09:52; Stop 02/14/20 at 09:52; Status DC Fentanyl Citrate (Fentanyl 2ml Vial) 100 mcg STK-MED ONCE .ROUTE ; Start 02/14/20 at 09:52; Stop 02/14/20 at 09:53; Status DC Midazolam HCl (Versed) 2 mg STK-MED ONCE .ROUTE ; Start 02/14/20 at 09:53; Stop 02/14/20 at 09:53; Status DC Heparin Sodium (Porcine) (Heparin Sodium) 10,000 unit STK-MED ONCE .ROUTE ; Start 02/14/20 at 09:53; Stop 02/14/20 at 09:53; Status DC Verapamil HCl (Verapamil) 5 mg STK-MED ONCE .ROUTE ; Start 02/14/20 at 09:53; Stop 02/14/20 at 09:53; Status DC Nitroglycerin (Nitroglycerin) 200 mcg STK-MED ONCE .ROUTE ; Start 02/14/20 at 09:55; Stop 02/14/20 at 09:55; Status DC Bivalirudin (Angiomax) 250 mg STK-MED ONCE IV ; Start 02/14/20 at 10:34; Stop 02/14/20 at 10:34; Status DC Nitroglycerin (Nitroglycerin) 200 mcg 1X ONCE IART Last administered on 02/14/20at 11:09; Start 02/14/20 at 10:45; Stop 02/14/20 at 10:53; Status DC Verapamil HCl (Verapamil) 2.5 mg 1X ONCE IART Last administered on 02/14/20at 11:11; Start 02/14/20 at 10:45; Stop 02/14/20 at 10:53; Status DC Heparin Sodium (Porcine) (Heparin Sodium) 2,500 unit 1X ONCE IART Last administered on 02/14/20at 11:12; Start 02/14/20 at 10:45; Stop 02/14/20 at 10:53; Status DC Heparin Sodium/ Sodium Chloride (HEPARIN for ARTERIAL LINE FLUSH) 1,000 unit 1X ONCE IART Last administered on 02/14/20at 11:09; Start 02/14/20 at 10:45; Stop 02/14/20 at 10:53; Status DC Midazolam HCl (Versed) 2 mg 1X ONCE IV Last administered on 02/14/20at 11:11; Start 02/14/20 at 10:45; Stop 02/14/20 at 10:53; Status DC Fentanyl Citrate (Fentanyl 2ml Vial) 100 mcg 1X ONCE IV Last administered on 02/14/20at 11:10; Start 02/14/20 at 10:45; Stop 02/14/20 at 10:53; Status DC Iodixanol (Visipaque 320) 100 ml 1X ONCE IART Last administered on 02/14/20at 11:10; Start 02/14/20 at 10:45; Stop 02/14/20 at 10:53; Status DC Bivalirudin (Angiomax) 250 mg 1X ONCE IV Last administered on 02/14/20at 11:10; Start 02/14/20 at 10:45; Stop 02/14/20 at 10:53; Status DC Lidocaine HCl (Xylocaine-Mpf 1% 2ml Vial) 0.5 ml 1X ONCE INJ Last administered on 02/14/20at 11:11; Start 02/14/20 at 10:45; Stop 02/14/20 at 10:53; Status DC Prasugrel (Effient) 10 mg STK-MED ONCE .ROUTE ; Start 02/14/20 at 10:57; Stop 02/14/20 at 10:58; Status DC Nitroglycerin (Nitroglycerin) 200 mcg 1X ONCE ICAR Last administered on 02/14/20at 11:09; Start 02/14/20 at 11:00; Stop 02/14/20 at 11:01; Status DC Prasugrel (Effient) 60 mg 1X ONCE PO Last administered on 02/14/20at 11:10; Start 02/14/20 at 11:00; Stop 02/14/20 at 11:01; Status DC Sodium Chloride (Normal Saline Flush) 3 ml QSHIFT PRN IV AFTER MEDS AND BLOOD DRAWS; Start 02/14/20 at 11:45 Sodium Chloride 1,000 ml @ 75 mls/hr [id number] IV Last administered on 02/14/20at 11:37; Start 02/14/20 at 11:37 Prasugrel (Effient) 10 mg DAILYWBKFT PO Last administered on 02/15/20at 09:07; Start 02/15/20 at 08:00 Acetaminophen (Tylenol) 650 mg PRN Q6HRS PRN PO MILD PAIN / TEMP > 100.3'F; Start 02/14/20 at 11:45 Nitroglycerin (Nitrostat) 0.4 mg PRN Q5MIN PRN SL CHEST PAIN; Start 02/14/20 at 11:45 Calcium Carbonate/ Glycine (Tums) 500 mg PRN AFTMEALHC PRN PO INDIGESTION Last administered on 02/15/20at 12:30; Start 02/15/20 at 12:30 Active Scripts Active Reported Pantoprazole Sodium (Pantoprazole Sodium) 40 Mg Tablet.dr 40 Mg PO DAILYAC Amlodipine Besylate 10 Mg Tablet 10 Mg PO DAILY Vital Signs Vital Signs Date Time Temp Pulse Resp B/P (MAP) Pulse Ox O2 Delivery O2 Flow Rate FiO2 02/15/20 10:33 98.7 56 16 127/67 (87) 99 Room Air 98.7 02/14/20 11:14 2.0 Labs Laboratory Tests Test 02/13/20 15:50 02/13/20 17:10 02/13/20 19:42 02/13/20 22:40 White Blood Count 6.5 x10^3/uL (4.0-11.0) Red Blood Count 4.69 x10^6/uL (3.50-5.40) Hemoglobin 14.1 g/dL (12.0-15.5) Hematocrit 40.4 % (36.0-47.0) Mean Corpuscular Volume 86 fL (79-100) Mean Corpuscular Hemoglobin 30 pg (25-35) Mean Corpuscular Hemoglobin Concent 35 g/dL (31-37) Red Cell Distribution Width 13.0 % (11.5-14.5) Platelet Count 276 x10^3/uL (140-400) Neutrophils (%) (Auto) 63 % (31-73) Lymphocytes (%) (Auto) 28 % (24-48) Monocytes (%) (Auto) 7 % (0-9) Eosinophils (%) (Auto) 1 % (0-3) Basophils (%) (Auto) 1 % (0-3) Neutrophils # (Auto) 4.1 x10^3/uL (1.8-7.7) Lymphocytes # (Auto) 1.9 x10^3/uL (1.0-4.8) Monocytes # (Auto) 0.5 x10^3/uL (0.0-1.1) Eosinophils # (Auto) 0.0 x10^3/uL (0.0-0.7) Basophils # (Auto) 0.0 x10^3/uL (0.0-0.2) Prothrombin Time 12.5 SEC (11.7-14.0) Prothromb Time International Ratio 1.0 (0.8-1.1) Activated Partial Thromboplast Time 29 SEC (24-38) D-Dimer (Bouchra) 0.80 ug/mlFEU (0.00-0.50) Sodium Level 139 mmol/L (136-145) Potassium Level 3.6 mmol/L (3.5-5.1) Chloride Level 102 mmol/L (98-107) Carbon Dioxide Level 27 mmol/L (21-32) Anion Gap 10 (6-14) Blood Urea Nitrogen 8 mg/dL (7-20) Creatinine 0.9 mg/dL (0.6-1.0) Estimated GFR (Cockcroft-Gault) 62.6 BUN/Creatinine Ratio 9 (6-20) Glucose Level 137 mg/dL (70-99) Calcium Level 8.8 mg/dL (8.5-10.1) Magnesium Level 2.0 mg/dL (1.8-2.4) Total Bilirubin 0.3 mg/dL (0.2-1.0) Aspartate Amino Transf (AST/SGOT) 41 U/L (15-37) Alanine Aminotransferase (ALT/SGPT) 23 U/L (14-59) Alkaline Phosphatase 120 U/L (46-116) Creatine Kinase 325 U/L (26-192) Creatine Kinase MB (Mass) 18.7 ng/mL (0.0-3.6) Creatine Kinase MB Relative Index 5.8 % (0-4) Troponin I Quantitative 1.663 ng/mL (0.000-0.055) 2.604 ng/mL (0.000-0.055) 3.640 ng/mL (0.000-0.055) ZN-Jbn-R-Type Natriuretic Peptide 1221 pg/mL (0-124) Total Protein 7.6 g/dL (6.4-8.2) Albumin 3.8 g/dL (3.4-5.0) Albumin/Globulin Ratio 1.0 (1.0-1.7) Lipase 177 U/L (73-393) Urine Collection Type Unknown Urine Color Yellow Urine Clarity Clear Urine pH 7.5 (<5.0-8.0) Urine Specific [place] <=1.005 (1.000-1.030) Urine Protein Negative mg/dL (NEG-TRACE) Urine Glucose (UA) Negative mg/dL (NEG) Urine Ketones (Stick) Negative mg/dL (NEG) Urine Blood Negative (NEG) Urine Nitrite Negative (NEG) Urine Bilirubin Negative (NEG) Urine Urobilinogen Dipstick 0.2 mg/dL (0.2 mg/dL) Urine Leukocyte Esterase Negative (NEG) Urine RBC Occ /HPF (0-2) Urine WBC Occ /HPF (0-4) Urine Squamous Epithelial Cells Few /LPF Urine Bacteria 0 /HPF (0-FEW) Heparin Anti-Xa Act, Unfractionated 0.55 IU/mL (0.30-0.70) Test 02/14/20 04:40 02/14/20 04:46 02/15/20 10:56 Troponin I Quantitative 6.436 ng/mL (0.000-0.055) Heparin Anti-Xa Act, Unfractionated 0.42 IU/mL (0.30-0.70) Hemoglobin A1c 5.5 % (4.8-5.6) Triglycerides Level 34 mg/dL (0-150) Cholesterol Level 254 mg/dL (0-200) LDL Cholesterol, Calculated 133 mg/dL (0-100) VLDL Cholesterol, Calculated 7 mg/dL (0-40) Non-HDL Cholesterol Calculated 140 mg/dL (0-129) HDL Cholesterol 114 mg/dL (40-60) Cholesterol/HDL Ratio 2.2 Thyroid Stimulating Hormone (TSH) 2.389 uIU/mL (0.358-3.74) Sodium Level 140 mmol/L (136-145) Potassium Level 4.0 mmol/L (3.5-5.1) Chloride Level 104 mmol/L (98-107) Carbon Dioxide Level 29 mmol/L (21-32) Anion Gap 7 (6-14) Blood Urea Nitrogen 13 mg/dL (7-20) Creatinine 0.9 mg/dL (0.6-1.0) Estimated GFR (Cockcroft-Gault) 62.6 Glucose Level 84 mg/dL (70-99) Calcium Level 8.0 mg/dL (8.5-10.1) Laboratory Tests Test 02/15/20 10:56 Sodium Level 140 mmol/L (136-145) Potassium Level 4.0 mmol/L (3.5-5.1) Chloride Level 104 mmol/L (98-107) Carbon Dioxide Level 29 mmol/L (21-32) Anion Gap 7 (6-14) Blood Urea Nitrogen 13 mg/dL (7-20) Creatinine 0.9 mg/dL (0.6-1.0) Estimated GFR (Cockcroft-Gault) 62.6 Glucose Level 84 mg/dL (70-99) Calcium Level 8.0 mg/dL (8.5-10.1) Allergies Allergies Coded Allergies Type Severity Reaction Last Updated Verified Sulfa (Sulfonamide Antibiotics) Allergy Intermediate Hives 02/13/20 Yes Disposition/Orders: D/C to Home Justicifation of Admission Dx: Justifications for Admission: Justification of Admission Dx: Yes CHF: Cardiac Arrhythmias HESHAM ALVARENGA MD Feb 15, 2020 13:54
--- NOTE | 2020-02-15 13:55 | DISCH ---
DISCHARGE INSTRUCTIONS Condition on Discharge Condition on Discharge: Stable Activity After Discharge Activity Instructions for Disc: Activity as tolerated Lifting Instructions after Dis: No heavy lifting, No pulling or pushing Driving Instructions after Dis: Do not drive today Diet after Discharge Diet after Discharge: Cardiac, Diabetic No Calorie Level Checks after Discharge Checks after discharge: Check blood press - daily Contacting the DRMarilou after DC Call your doctor for: If your condition worsens Warfarin Follow-Up Warfarin Follow UP: SEE CARDIOLOGY SOON DIRECTED, PCP HESHAM MOSS MD Feb 15, 2020 13:55
--- NOTE | 2020-02-15 15:00 | NUR ---
Discharge Note: MARC GOMEZ Discharge instructions and discharge home medications reviewed with Patient and spouse and a copy given. All questions have been answered and understanding verbalized. Education given on new medications: atorvastatin, aspirin, metoprolol, and effient. Follow up appointment and cardiac rehab information provided to patient. The following instructions and handouts were given: Cardiac rehab, cardiac diet, and cardiac cath discharge instructions Discontinued lines and drains: Peripheral IV intact. Patient discharged to Home or Self Care with Spouse via Ambulated
== END 2020-02-15 15:00 | disposition home or self-care (01) | DRG 246 ==
LOC: ER 15:37 → 2 SOUTH 16:36
PROVIDERS: ADMIT Family Medicine; ATTEND Family Medicine
PROC: B211YZZ Fluoroscopy of Multiple Coronary Arteries using Other Contrast (ICD-10-PCS; principal; 2020-02-14)
PROC: 027035Z Dilation of Coronary Artery, One Artery with Two Drug-eluting Intraluminal Devices, Percutaneous Approach (ICD-10-PCS; 2020-02-14)
PROC: 4A023N7 Measurement of Cardiac Sampling and Pressure, Left Heart, Percutaneous Approach (ICD-10-PCS; 2020-02-14)
PROC: B215YZZ Fluoroscopy of Left Heart using Other Contrast (ICD-10-PCS; 2020-02-14)
DX: I21.4 Non-ST elevation (NSTEMI) myocardial infarction (principal); I50.33 Acute on chronic diastolic (congestive) heart failure; E78.00 Pure hypercholesterolemia, unspecified; E78.5 Hyperlipidemia, unspecified; R73.9 Hyperglycemia, unspecified; I11.0 Hypertensive heart disease with heart failure; M19.90 Unspecified osteoarthritis, unspecified site; I25.10 Atherosclerotic heart disease of native coronary artery without angina pectoris; K21.9 Gastro-esophageal reflux disease without esophagitis; Z79.82 Long term (current) use of aspirin; Z82.49 Family history of ischemic heart disease and other diseases of the circulatory system; Z87.891 Personal history of nicotine dependence; Z98.61 Coronary angioplasty status
CPT/HCPCS: 36415; 71275; 80048; 80053; 80061; 81001; 82553; 83036; 83690; 83735; 83880; 84443; 84484; 85025; 85379; 85520; 85610; 85730; 92928; 93005; 93306; 93458; 96374; 96375; 99152; 99153; 99291; C1725; C1769; C1874; C1887; C1892; J0583; J1644; J2250; J3010; J3490; J7030; Q9967; G0378

== ENCOUNTER → 2020-06-01 | Outpatient (CLI) | payer MEDICARE ==
[~2020-06-01] MED LIST: AMLO10TA8 PO; ASPI-886 PO; ASPI325T11 PO; ATOR40TA59 PO; METO25TA4 PO; PANT40TA77 PO; PRAS10TA9 PO
[2020-06-01 13:54] LABS: CALCIUM 8.9 mg/dL (8.5-10.1); CREATININE 0.9 mg/dL (0.6-1.0); GFR 62.5; POTASSIUM 4.2 mmol/L (3.5-5.1)
== END | disposition home or self-care (01) ==
LOC: LAB 12:20
PROVIDERS: ATTEND Internal Medicine Cardiovascular Disease
DX: I25.9 Chronic ischemic heart disease, unspecified (principal)
CPT/HCPCS: 36415; 80048

== ENCOUNTER → 2021-06-26 | Outpatient (CLI) | payer MEDICARE ==
[~2021-06-26] MED LIST changes: +AMLO-187 PO; -AMLO10TA8 PO; +REGADENOSON 0.4 MG/5 ML DISP.SYRIN. IV ONE
--- NOTE | 2021-06-27 15:46 | CARD ---
MR#: [id number] Date of Study: 06/26/2021 Ordering Physician: PAVAN KELLY, Referring Physician: PAVAN KELLY, Tech: Susana Rocha [facility] APPROVED REPORT EXAM: Two-dimensional and M-mode echocardiogram with Doppler and color Doppler. Other Information Quality : AverageHR: 72bpm Rhythm : RBBB INDICATION Cardiac Disease: CAD RISK FACTORS Hypertension Hyperlipidemia 2D DIMENSIONS RVDd3.0 (2.9-3.5cm)Left Atrium(2D)2.9 (1.6-4.0cm) IVSd0.8 (0.7-1.1cm)Aortic Root(2D)2.5 (2.0-3.7cm) LVDd4.9 (3.9-5.9cm)LVOT Diameter2.1 (1.8-2.4cm) PWd0.8 (0.7-1.1cm)LVDs3.3 (2.5-4.0cm) FS (%) 32.4 %SV68.5 ml LVEF(%)60.6 (>50%) Aortic Valve AoV Peak Jerome.145.2cm/sAoV VTI33.3cm AO Peak GR.8.4mmHgLVOT Peak Jerome.109.8cm/s LVOT VTI 26.26cmAO Mean GR.4mmHg JOE (VMAX)2.11bn4GQW (VTI)2.70cm2 Mitral Valve MV E Olgtziom31.4cm/sMV DECEL [id number] MV A Xeluxjou33.7cm/sMV E Mean Gr.1mmHg MV EIG68piK/A Ratio1.0 MVA (PHT)3.98cm2 TDI E/Lateral E'9.0E/Medial E'15.7 Pulmonary Valve PV Peak Vnxewbmp50.2cm/sPV Peak Grad.3mmHg Tricuspid Valve TR P. Cjgkkhkg995xu/sRAP SQWWFWID0ejPr TR Peak Gr.29hkJeBYNC92loIu Pulmonary Vein S1 Yjzgrxyi47.9cm/sD2 Zccrozts20.3cm/s PVa ndqlizmi838nbpe LEFT VENTRICLE The left ventricle is normal size. There is normal left ventricular wall thickness. The left ventricu lar systolic function is normal and the ejection fraction is within normal range. The Ejection Fracti on is 50-55%. There is normal LV segmental wall motion. Transmitral Doppler flow pattern is Grade II- pseudonormal filling dynamics. No left ventricle thrombus noted on this study. There is no ventricula r septal defect visualized. There is no left ventricular aneurysm. There is no mass noted in the left ventricle. RIGHT VENTRICLE The right ventricle is normal size. There is normal right ventricular wall thickness. The right ventr icular systolic function is normal. ATRIA The left atrium size is normal. The right atrium is mildly dilated. The interatrial septum is intact with no evidence for an atrial septal defect or patent foramen ovale as noted on 2-D or Doppler imagi ng. AORTIC VALVE The aortic valve is mildly thickened but opens well. Doppler and Color Flow revealed trace aortic reg urgitation. There is no significant aortic valvular stenosis. Calculated aortic valve area is 2.63 cm 2 with maximum pressure gradient of 9 mmHg and mean pressure gradient of 5 mmHg. There is no aortic v alvular vegetation. MITRAL VALVE The mitral valve is normal in structure and function. There is no evidence of mitral valve prolapse. There is no mitral valve stenosis. Doppler and Color-flow revealed trace mitral regurgitation. TRICUSPID VALVE The tricuspid valve is normal in structure and function. Doppler and Color Flow revealed trace tricus pid regurgitation with an estimated PAP of 35 mmHg. There is no tricuspid valve prolapse or vegetatio n. There is no tricuspid valve stenosis. PULMONIC VALVE Doppler and Color Flow revealed trace pulmonic valvular regurgitation. There is no pulmonic valvular stenosis. GREAT VESSELS The aortic root is normal in size. The ascending aorta is normal in size. The IVC is dilated but staci apses less than 50% with respiration PERICARDIAL EFFUSION There is no evidence of significant pericardial effusion. Critical Notification Critical Value: No <Conclusion> The left ventricular systolic function is normal and the ejection fraction is within normal range. Th e Ejection Fraction is 50-55%. Transmitral Doppler flow pattern is Grade II-pseudonormal filling dynamics. Doppler and Color Flow revealed trace tricuspid regurgitation with an estimated PAP of 35 mmHg. Signed by : Vishnu Roque, Electronically Approved : 06/27/2021 15:46:02
--- NOTE | 2021-06-27 16:18 | RAD ---
MR#: [id number] Date of Study: 06/26/2021 Ordering Physician: PAVAN KELLY Referring Physician: JANKI MAYEN Tech: RT Ava Jean) (N) APPROVED REPORT Test Type: Pharmacological Stress Nurse/Tech: Christen Welsh RN Test Indications: CAD Cardiac History: Stents x 2, HTN, x-smoker Medications: See Electronic Medical Record Medical History: See Electronic Medical Record Resting ECG: SR BBB Resting Heart Rate: 57 bpm Resting Blood Pressure: 164/76mmHg Pretest Chest Pain: None Nurse/Tech Notes Lungs CTA, S1S2 Consent: The procedure was explained to the patient in lay terms. Informed consent was witnessed. Sp eout was entered into [employer]. History and Stress Test performed by RT Ava Jean) (N) Pharm. Details Pharmacologic stress testing was performed using 0.4mg per 5ml of regadenoson given intravenously ove r 7-10 seconds. Stress Symptoms No chest pain or symptoms. POST EXERCISE Reason for Termination: Infusion complete Max HR: 94 bpm Max Blood Pressure: 172/96mmHg Blood Pressure response to exercise: Normal blood pressure response during stress. Heart Rate response to exercise: normal response Chest Pain: No. Arrhythmia: No. ST Change: No. INTERPRETATION Stress EKG Conclusion: Non-diagnostic EKG due to LBBB. Imaging Protocol IMAGE PROTOCOL: Rest Tc-99m/stress Tc-99m 1 day Rest: Stress: Viability: Radiopharm.Tc99m BplkxgsrsXo88z Sestamibi Dose10.3mCi 31mCi Duration 13min. 13min. Img Date 06/26/2021 06/26/2021 Inj-Img Dqsg84pwt. 60min. Rest Admin Site:IV - Left AntecubitalAdministrator:RT Ava Jean)(N) Stress Admin Site: IV - Left AntecubitalAdministrator: IMAN Pace STRESS DATA End Diast. Vol.78.0mlLVEDV index BSA42.0ml End Syst. Vol.20.0mlLVESV index BSA11.0ml Myocardial Wann811.0gEject. Kyavihjc44.0% Stress Scores Regional WT2.00Summed WT24.00 Regional WM0.00Summed WM1.00 The rest and stress images show normal perfusion, normal contraction and thickening. LV Perf. Quant 17 Seg. SSS0.00 17 Seg. SRS4.00 17 Seg. SDS0.00 Stress Defect Extent (% LAD)0.00Rest Defect Extent (% LAD)4.40Rev. Defect Extent (% LAD)0.00 Stress Defect Extent (% LCX) 0.00Rest Defect Extent (% LCX)0.00Rev. Defect Extent (% LCX)0.00 Stress Defect Extent (% RCA)0.00Rest Defect Extent (% RCA)13.30Rev. Defect Extent (% RCA)0.00 Stress Defect Extent (% SUSHANT)0.00Rest Defect Extent (% SUSHANT)7.60Rev. Defect Extent (% SUSHANT)0.00 Other Information Quality:Average Risk Assessment: Low Risk Conclusion 1. Non-diagnostic EKG due to LBBB. 2. Normal perfusion at stress/rest. 3. Low risk study. 4. EF > 60%. Signed by : Vishnu Roque, Electronically Approved : 06/27/2021 16:18:00
== END ==
LOC: NM 09:07
PROVIDERS: ATTEND Internal Medicine Cardiovascular Disease
DX: I44.7 Left bundle-branch block, unspecified (principal); I25.10 Atherosclerotic heart disease of native coronary artery without angina pectoris
CPT/HCPCS: 78452; 93017; 93306; A9500; J2785